=== PATIENT | female | born 1985 | race African-American/Black ===

== ENCOUNTER 2018-11-29 11:04 | Emergency (ER) | payer OTHER, MEDICAID, SELFPAY ==
[2018-11-29 11:05] VITALS: BP 111/71; PULSE 82; RESP 18; TEMP 36.9; O2SAT 100
--- NOTE | 2018-11-29 11:10 | ED_ITS ---
HPI - Headache General Chief Complaint: Dizziness Stated Complaint: headache dizzy spells vomiting Time Seen by Provider: 11/29/18 11:10 Source: patient Mode of arrival: Ambulatory Limitations: no limitations History of Present Illness HPI Narrative: Patient is a 33-year-old female who presents with vertigo and headache. She has had dizziness off and on for a number of will months comes and goes and seems to be coming more frequently. It can wake her from her sleep. It is definitely worse when she turns her head or sits up. She feels nauseous she has had vomiting she gets headaches with these. She was seen evaluated at [facility] they gave her nausea medication and dizzy medication she is not sure what they were. She sometimes has weakness in her legs. She denies any heart palpitations or chest pain. She overall does not feel well today. MD Complaint: headache Related Data Previous Rx's Medication Instructions Recorded diazepam [Valium] 2 mg PO Q12HR PRN #10 tab 11/29/18 ondansetron 4 mg PO Q8H PRN #10 tab 11/29/18 Allergies Allergy/AdvReac Type Severity Reaction Status Date / Time morphine [MORPHINE] Allergy Unknown HIVES Verified 11/29/18 14:43 prochlorperazine AdvReac Severe Hallucinati Verified 11/29/18 14:43 ng Review of Systems Review of Systems ROS Unobtainable: All systems reviewed & are unremarkable except as noted in HPI and below Constitutional Constitutional: Denies chills, Denies fever(s), Denies lethargy and Denies weakness Eyes Eyes: Denies blurry vision, Denies change in vision, Denies diplopia, Denies eye discharge, Denies irritation and Denies loss of vision ENT Ears, Nose, Mouth, and Throat: Denies change in voice, Denies neck pain and Denies sore throat Cardiovascular Cardiovascular: Denies chest pain, Denies irregular heart rhythm, Reports lightheadedness, Denies palpitations, Denies dyspnea, Denies dyspnea on exertion and Denies orthopnea Respiratory Respiratory: Denies cough, Denies dyspnea, Denies dyspnea on exertion and Denies wheezing Gastrointestinal Gastrointestinal: Reports nausea and Reports vomiting Genitourinary Genitourinary: Denies hematuria, Denies flank pain, Denies urinary incontinence and Denies urinary urgency Musculoskeletal Musculoskeletal: Denies neck pain Integumentary/Breasts Skin/Breast: Denies pruritus, Denies erythema, Denies rash and Denies wounds Neurologic Neurologic: Denies loss of vision and Denies weakness Endocrine Endocrine: Denies palpitations Allergic/Immunologic Allergic/Immunologic: Denies wheezing FORMERLY [facility], 1928–1983 Medical History History of hysterectomy (Acute) Social History (Updated 11/29/18 @ 11:40 by Nathaly Ivy DO) marital status: household members: spouse Social History marital status: household members: spouse Smoking Status: Never smoker Exam Initial Vital Signs Initial Vital Signs: Vital Signs Temperature 98.5 F 11/29/18 11:05 Pulse Rate 82 11/29/18 11:05 Respiratory Rate 18 11/29/18 11:05 Blood Pressure 111/71 11/29/18 11:05 Pulse Oximetry 100 11/29/18 11:05 GENERAL: Well-appearing, well-nourished and in no acute distress. HEENT: Head atraumatic,EOMI, pupils reactive, face symmetric, moist mucous membranes CARDIOVASCULAR: Regular rate and rhythm without murmurs, rubs or gallops. RESPIRATORY: Breath sounds equal bilaterally, no wheezes rales or rhonchi. ABDOMEN: Soft, nontender. Normoactive bowel sounds all 4 quadrants. No guarding or rebound. EXTREMITIES: Normal range of motion, no clubbing or edema. Neurovascularly intact NEUROLOGICAL: Alert and oriented x4.Normal gait and speech. Cranial nerves II through XII grossly intact. Good [id number]-[id number], good [id number]-mp-[id number], strength equal bilaterally, no dysarthria or aphasia, sensation in tact to soft touch bilaterally, no visual changes, no facial droop SKIN: Warm, dry, no laceration, no petechiae, no rashes or lesions. Scores NIH Stroke Scale Level of Conciousness: Alert, keenly responsive Ask month/age: Answers both questions correctly. Open/close eyes, close hand: Performs both tasks correctly Best gaze horizontal: Normal Visual mccurdy: No visual loss Facial palsy: Normal symetrical movement Left arm drift: No drift for full 10 sec Right arm drift: No drift for full 10 sec Left leg drift: No drift for full 10 sec Right leg drift: No drift for full 10 sec Limb ataxia: Absent Sensory on face/arms/legs: Normal, no sensory loss Best language: No aphasia, normal Dysarthria: Normal Extinction or inattention: No abnormality Total NIH Stroke scale score: 0 Course Orders Ordered: ED Orders 11/29/18 11:30 Basic Metabolic Panel Stat Complete Blood Count AUTO DIFF Stat 11/29/18 11:42 CT head/brain wo con Stat 11/29/18 12:30 EKG-12 Lead Stat Discontinued Medications Diphenhydramine HCl (Benadryl) 25 mg IV NOW ONE Stop: 11/29/18 11:22 Last Admin: 11/29/18 11:56 Dose: 25 mg Documented by: BTONER Sodium Chloride (Normal Saline 0.9%) 1,000 mls @ 1,000 mls/hr IV CONT TERRY Last Infusion: 11/29/18 13:50 Dose: 0 mls/hr Documented by: Admin: 11/29/18 11:55 Dose: 1,000 mls/hr Documented by: BTONER Ketorolac Tromethamine (Toradol) 30 mg IV NOW ONE Stop: 11/29/18 11:22 Last Admin: 11/29/18 11:56 Dose: 30 mg Documented by: BTONER Lorazepam (Ativan) 1 mg IV NOW ONE Stop: 11/29/18 12:21 Last Admin: 11/29/18 12:24 Dose: 1 mg Documented by: BTONER Prochlorperazine (Compazine) 5 mg IV NOW ONE Stop: 11/29/18 11:22 Last Admin: 11/29/18 11:55 Dose: 5 mg Documented by: BTONER Vital Signs Vital signs: Vital Signs - 8 hr 11/29/18 11:05 11/29/18 11:30 11/29/18 11:55 Temperature 98.5 F Pulse Rate 82 79 74 Respiratory Rate 18 14 Blood Pressure 111/71 111/71 Blood Pressure [Right Arm] 111/71 Pulse Oximetry 100 99 11/29/18 12:30 11/29/18 13:00 11/29/18 14:37 Temperature Pulse Rate 76 75 78 Respiratory Rate 17 16 17 Blood Pressure Blood Pressure [Right Arm] 113/71 117/70 104/69 Pulse Oximetry 100 100 100 MDM - Headache Lab Data Attestation: I reviewed the patient's lab results. Result diagrams: 11/29/18 11:30 11/29/18 11:30 Labs: Lab Results 11/29/18 11/29/18 Range/Units 11:30 11:30 WBC 4.1 L (4.5-11.0) X10^3/uL RBC 4.96 (4.0-5.2) X10^6/uL Hgb 13.7 (12.0-16.0) g/dL Hct 41.2 (36-46) % MCV 83.0 (80-100) fL MCH 27.6 (26-34) PG MCHC 33.2 (30-36) % RDW 13.5 (11.6-14.8) % Plt Count 195 (150-400) X10^3/uL Neut % (Auto) 45.9 L (50-75) % Lymph % (Auto) 45.5 H (25-40) % [place] % (Auto) 6.9 (3-14) % Eos % (Auto) 1.1 L (2-4) % Baso % (Auto) 0.6 (0-2) % Neut # (Auto) 1900 (1661-2060) /uL Lymph # (Auto) 1900 (8714-5661) /uL [place] # (Auto) 300 (0-900) /uL Eos # (Auto) 0 (0-450) /uL Baso # (Auto) 0 (0-100) /uL Sodium 140 (137-145) mmol/L Potassium 4.1 (3.4-5.1) mmol/L Chloride 105 (98-107) mmol/L Carbon Dioxide 22 (22-32) mmol/L BUN 11 (7-17) mg/dL Creatinine 0.60 (0.52-1.04) mg/dL Estimated GFR > 60.0 (>60) mL/min BUN/Creatinine Ratio 18.3 (6-22) Glucose 86 (70-100) mg/dL Calcium 9.5 (8.4-10.2) mg/dL Imaging Data CT scan - head: Radiologist's impression: PROCEDURE: CT HEAD/BRAIN WO CON INDICATIONS: recurrent dizzy spells TECHNIQUE: Noncontrast 4.5 mm thick angled axial sections acquired from the foramen magnum to the vertex, with coronal and sagittal reformats. For radiation dose reduction, the following was used: automated exposure control, adjustment of mA and/or kV according to patient size. COMPARISON: None. FINDINGS: Image quality: Excellent. CSF spaces: Basal cisterns are patent. No extra-axial fluid collections. Ventricles are normal in size and shape. Brain: No midline shift. No intracranial masses or hemorrhage. Medrano-white matter interface is normal. Skull and face: Calvarium and visualized facial bones are intact, without suspicious lesions. Sinuses: Visualized sinuses and mastoids are clear. IMPRESSION: Normal CT evaluation of the head without acute intracranial abnormalities. No evidence for mass or mass effect. Dictated by: Harjit Crouch M.D. on 11/29/2018 at 11:56 Approved by: Harjit Crouch M.D. on 11/29/2018 at 11:57 ECG Data Attestation: I personally reviewed and interpreted this ECG as follows: Prior ECG tracings: not available for review Interpretation: Normal sinus rhythm rate 69 p.r. interval [address] elevations or depressions no priors to compare. MDM Narrative Medical decision making narrative: Patient had reaction to Compazine she was given Ativan. She slept for some time. She overall is feeling much better. I recommend that she see ENT for ongoing vertigo symptoms. She was previously given the I am assuming meclizine. I will try her on some Valium the Ativan see med to help. Discharge Plan Departure Patient Disposition: Home Clinical Impression: Vertigo Discharge Date/Time: 11/29/18 14:39 Instructions: DI for Vertigo Activity Restrictions/Additional Instructions: *You have been diagnosed with vertigo *What to do: Rest. It you need and ENT referral. *Continue to take medications as directed Zofran 4 mg every 8 hours if needed for nausea or vomiting Valium 2.5 mg every 12 hours if needed for dizziness this can cause drowsiness and sleepiness do not drive or operate heavy machinery *Follow up with your primary care provider in 2-3 days *Return to ER if you should have worsening dizziness persistent vomiting weakness numbness tingling or any new, worsening or concerning symptoms Prescriptions: New diazepam [Valium] 2 mg tablet 2 mg PO Q12HR PRN (Reason: dizziness or vertigo) Qty: 10 RF: 0 ondansetron 4 mg tablet,disintegrating 4 mg PO Q8H PRN (Reason: nausea and vomiting) Qty: 10 RF: 0 Referrals: Gerry Perez MD [Physician] -
[2018-11-29 11:30] VITALS: BP 111/71; PULSE 79; RESP 14; O2SAT 99
--- NOTE | 2018-11-29 11:42 | DI.CT.S_ITS ---
PROCEDURE: CT HEAD/BRAIN WO CON INDICATIONS: recurrent dizzy spells TECHNIQUE: Noncontrast 4.5 mm thick angled axial sections acquired from the foramen magnum to the vertex, with coronal and sagittal reformats. For radiation dose reduction, the following was used: automated exposure control, adjustment of mA and/or kV according to patient size. COMPARISON: None. FINDINGS: Image quality: Excellent. CSF spaces: Basal cisterns are patent. No extra-axial fluid collections. Ventricles are normal in size and shape. Brain: No midline shift. No intracranial masses or hemorrhage. Medrano-white matter interface is normal. Skull and face: Calvarium and visualized facial bones are intact, without suspicious lesions. Sinuses: Visualized sinuses and mastoids are clear. IMPRESSION: Normal CT evaluation of the head without acute intracranial abnormalities. No evidence for mass or mass effect. Dictated by: Harjit Crouch M.D. on 11/29/2018 at 11:56 Approved by: Harjit Crouch M.D. on 11/29/2018 at 11:57
[2018-11-29 11:51] LABS: Add Manual Diff / Slide Review NO; Basophils Absolute Auto 0 /uL (0-100); Basophils Percent Auto 0.6 % (0-2); Eosinophils Absolute Auto 0 /uL (0-450); Eosinophils Percent Auto 1.1 % (2-4); Hematocrit 41.2 % (36-46); Hemoglobin 13.7 g/dL (12.0-16.0); Lymphocytes Absolute Auto 1900 /uL (1100-4500); Lymphocytes Percent Auto 45.5 % (25-40); Mean Corpuscular HGB Conc 33.2 % (30-36); Mean Corpuscular Hemoglobin 27.6 PG (26-34); Monocytes Absolute Auto 300 /uL (0-900); Monocytes Percent Auto 6.9 % (3-14); Neutrophils Absolute Auto 1900 /uL (1500-7000); Neutrophils Percent Auto 45.9 % (50-75); Platelet Count 195 X10^3/uL (150-400); Red Blood Cell Count 4.96 X10^6/uL (4.0-5.2); Red Cell Distribution Width 13.5 % (11.6-14.8); White Blood Cell Count 4.1 X10^3/uL (4.5-11.0)
[2018-11-29 11:55] VITALS: BP 111/71; PULSE 74
[2018-11-29] MEDS: PROCHLORPERAZINE 10 MG/2 ML VIAL 5 MG IV (11:55)
[2018-11-29] MEDS: SODIUM CHLORIDE 0.9% 1,000 ML 1000 ML IV (11:55)
[2018-11-29] MEDS: KETOROLAC 60 MG/2 ML VIAL 30 MG IV (11:56)
[2018-11-29] MEDS: diphenhydrAMINE 50 MG/ML VIAL 25 MG IV (11:56)
[2018-11-29 12:02] LABS: BUN Creatinine Ratio 18.3 (6-22); Blood Urea Nitrogen 11 mg/dL (7-17); Calcium 9.5 mg/dL (8.4-10.2); Carbon Dioxide 22 mmol/L (22-32); Chloride 105 mmol/L (98-107); Estimated Glomerular Filt Rate > 60.0 mL/min (>60); Glucose 86 mg/dL (70-100); Potassium 4.1 mmol/L (3.4-5.1); Sodium 140 mmol/L (137-145)
[2018-11-29 12:06] LABS: HEMOLYSIS 65 (0-50)
[2018-11-29] MEDS: LORazepam 2 MG/ML INJ 1 MG IV (12:24)
[2018-11-29 12:30] VITALS: BP 113/71; PULSE 76; RESP 17; O2SAT 100
[2018-11-29 13:00] VITALS: BP 117/70; PULSE 75; RESP 16; O2SAT 100
[2018-11-29 14:37] VITALS: BP 104/69; PULSE 78; RESP 17; O2SAT 100
== END 2018-11-29 14:39 | disposition home or self-care (01) ==
PROVIDERS: Emergency Provider Emergency Medicine
DX: R42 Dizziness and giddiness (principal)
CPT/HCPCS: 36415; 70450; 80048; 85025; 93005; 93010; 96361; 96374; 96375; 99283; 99285; J0780; J1200; J1885; J2060

== ENCOUNTER 2019-02-14 11:47 | Outpatient (RCR) | payer OTHER, MEDICAID, SELFPAY ==
--- NOTE | 2019-02-14 16:43 | PT.OIE ---
Current Diagnoses Benign paroxysmal vertigo, unspecified ear (02/14/19) Other peripheral vertigo, unspecified ear (02/14/19) Dizziness and giddiness (02/14/19) Past Surgical History (Last Reviewed 11/29/18 @ 11:40 by Nathaly Ivy DO) History of hysterectomy (Acute) Visit Care Team Role Provider Type Gerry Perez MD Attending Provider Physician Specialty: Ear, Nose, Throat Address: [address] [place] [address], [id number] Email: [email or web address] Initial Evaluation PT-OP-A Visit Information Start: 02/14/19 15:52 Freq: Status: Active Protocol: Document 02/14/19 12:00 DCW (Rec: 02/14/19 16:43 DCW [id number]) Out-Patient Physical Therapy Visit Information Visit Information Visit Type Initial Evaluation Visit Start Time 12:00 Visit Stop Time 12:45 Total Visit Minutes 45 Visit Number 1 Number of ATTENDING RADIOLOGIST Visits 0 Evaluation Information Evaluation Date 02/14/19 PT-OP-B Current Condition Start: 02/14/19 15:52 Freq: Status: Active Protocol: Document 02/14/19 12:00 DCW (Rec: 02/14/19 16:43 DCW [id number]) Current Condition History of Current Condition Current Complaints Vertiginous migraine History of Current Condition Pt is a 33 year old female with a life-long history of migraine. Pt reports as a child, she would frequently pass out due to the pain. It has come and gone over the course of her life, resulting in occasional fainting spells and facial numbness. Pt feels like it has been getting worse recently. When it begins with head pounding, she can't move, the room is spinning, and eventually I'll start vomiting. After that, even though I'm still dizzy, I normally fall asleep, just because I'm so tired. It normally lasts about 24 hours. She has seen her PCP, who referred her to a neurologist, as well as an ENT, all confirming diagnosis of vestibular migraine. Initially, pt reported that when she was not experiencing an active migraine, she didn't have any remaining symptoms, however after a discussion, pt noted that she was unable to tolerate any fast turns or increased visual movement. Pt reports that when she lies back when attempting an Kristofer maneuver, he sees horizontal eye movement, however this results in syncope. Prior Treatments and Tests Appointments with neurologist, ENT, behavioral medical director Future Testing and Treatments Planned Upcoming [facility]NG at [facility] Treatment Goals Patient/Caregiver Goals Minimize dizziness and migraine PT-OP-C Subjective Start: 02/14/19 15:52 Freq: Status: Active Protocol: Document 02/14/19 12:00 DCW (Rec: 02/14/19 16:43 DCW [id number]) OP-PT Subjective Patient Comments Patient Comments I have migraines on a daily basis, but they don't always make me dizzy. I only typically get dizzy about once a week. Patient Questionnaires ABC- Activity Specific Balance Confidence Scale ABC Score 51.25% ABC Functional Impairment 40 to <60% Impaired (Score 41- 60) Dizziness Handicap Inventory DHI Score 46% DHI Functional Impairment 40 to 59% Impaired (Score 40- 59) PT-OP-D Balance Start: 02/14/19 15:52 Freq: Status: Active Protocol: Document 02/14/19 12:00 DCW (Rec: 02/14/19 16:43 DCW [id number]) Balance Tests CTSIB CTSIB Position 1 Slight Sway CTSIB Position 2 Slight Sway CTSIB Position 3 Moderate Sway CTSIB Position 4 Mild Sway CTSIB Position 5 Mild Sway CTSIB Position 6 Moderate Sway PT-OP-O Vestibular Start: 02/14/19 15:52 Freq: Status: Active Protocol: Document 02/14/19 12:00 DCW (Rec: 02/14/19 16:43 DCW [id number]) Vestibular Assessment Visual Testing DVA (Line Degradation) 3 Vestibulo-Ocular Reflex (VOR1) Positive Vestibulo-Ocular Reflex (VOR2) Positive Comments Vestibular Comments DVA resulted in complaints of dizziness and seeing spots. PT-OP-Q Treatments Start: 02/14/19 15:52 Freq: Status: Active Protocol: Document 02/14/19 12:00 DCW (Rec: 02/14/19 16:43 DCW [id number]) Neuro Re-Education Treatment Vestibular Rehabilitation X1 Viewing Details Target still, head moving Distance From Target Arm length Speed as tolerated Position seated VOR Retraining Details Head, eyes, and target moving together Distance From Target Arm length Speed as tolerated Position seated PT-OP-T Assessment and Plan Start: 02/14/19 15:52 Freq: Status: Active Protocol: Document 02/14/19 12:00 DCW (Rec: 02/14/19 16:43 DCW [id number]) Physical Therapy Assessment Rehab Potential Rehabilitation Potential Fair Evaluation Complexity Number of Personal Factors/Comorbidities 3 or More Number of Body Systems Impaired 4 or More Clinical Presentation at Evaluation Unstable Impairments Impairments Balance,Pain,Vestibular,Visual Motor Goals Two Impairment Pt unable to tolerate fast turns when looking at traffic in the car Senior Living Goal (LTG) Pt to tolerate turning her head left<->right in a 45? arc of motion at a speed of 1 Hz without increased dizziness LTG Duration 04/17/19 One Impairment Pt does not have an appropriate home exercise program Short Term Goal (STG) Pt to be independent and compliant with an appropriate HEP STG Duration 03/17/19 Assessment Summary Assessment Pt presents with signs and symptoms consistent with vertiginous migraine. Even when not experiencing an active migraine with vertiginous symptoms, pt still has very severe visual motion sensitivity, with a trial of X1 viewing at a slow speed resulting in a large increase in complaints of dizziness and head pain. Pt would likely benefit from a referral to a neurologist whom specializes in migraine, however may benefit from skilled vestibular therapy in order to reduce her visual motion sensitivity and limit effects of triggering motions. Physical Therapy Plan Frequency and Duration Frequency of Treatment 1x/Week Duration of Treatment 10 weeks Plan of Care Start Date 02/14/19 Plan of Care End Date 04/25/19 Therapeutic Interventions Therapeutic Interventions Balance Training,Neuromuscular Re-education,Patient/ Caregiver Education,Self-Care/ Home Management,Therapeutic Activities,Therapeutic Exercises,Vestibular Rehabilitation Next Visit Focus/Plan Next Note Type Treatment Note Next Visit Plan Vestibular rehabilitation, Habituation/Adaptation
== END 2019-08-15 13:16 ==
LOC: PHYS 11:47
PROVIDERS: Visit Provider Otolaryngology
DX: H81.10 Benign paroxysmal vertigo, unspecified ear (principal); H81.399 Other peripheral vertigo, unspecified ear
CPT/HCPCS: 97112; 97163

== ENCOUNTER 2019-08-30 15:15 | Outpatient (RCR) | payer OTHER, MEDICAID, SELFPAY ==
--- NOTE | 2019-07-25 12:00 | PT.OPPOC ---
Physical, Occupational & Speech Therapy At [facility] Current Diagnoses Other peripheral vertigo, unspecified ear (07/25/19) Dizziness and giddiness (07/25/19) Visit Care Team Role Provider Type Gerry Perez MD Attending Provider Physician Referring Provider Specialty: Ear, Nose, Throat Address: [address] [place] [address], [facility] Email: [email or web address] Plan Of Care PT-OP-T Assessment and Plan Start: 07/27/19 10:49 Freq: Status: Active Protocol: Document 07/25/19 11:15 DCW (Rec: 07/27/19 11:16 DCW [id number]) Physical Therapy Assessment Rehab Potential Rehabilitation Potential Fair Evaluation Complexity Number of Personal Factors/Comorbidities 3 or More Number of Body Systems Impaired 4 or More Clinical Presentation at Evaluation Unstable Impairments Impairments Balance,Coordination, Vestibular,Visual Motor Goals Three Impairment Pt completed BOTELLO chart in 1: 39.91 with two errors Alf Goal (LTG) Pt to complete full BOTELLO chart saccadic reading <1:25 with 100% accuracy LTG Duration 09/24/19 Two Impairment Pt unable to tolerate fast turns when looking at traffic in the car Material Specialist Goal (LTG) Pt to tolerate turning her head left<->right in a 45? arc of motion at a speed of 1 Hz without increased dizziness LTG Duration 09/24/19 One Impairment Pt does not have an appropriate home exercise program Short Term Goal (STG) Pt to be independent and compliant with an appropriate HEP STG Duration 08/25/19 Assessment Summary Assessment Pt presents with a multitude of generally subjective complaints, no noteable nystagmus or testable balance deficits, however has received a VNG, which showed a 57% right vestibular loss. Pt has substantial subjective complaints with visual motion, and describes difficulty with activities like scanning store shelves, riding in a car , scanning visually while driving, and fast position changes. With pt's history of mirgaines, pt's complaints could potentially be associated with vestibular migraine, however this is unlikely to explain her right unilateral weakness. Skilled vestibular rehabilitation should be beneficial in decreasing pt's visual motion sensitivity/Optokinetic Nystagmus, and an extensive HEP should be provided in order to help with vestibular habituation. Physical Therapy Plan Frequency and Duration Frequency of Treatment 1x/Week Duration of Treatment 10 weeks Plan of Care Start Date 07/25/19 Plan of Care End Date 10/03/19 Therapeutic Interventions Therapeutic Interventions Balance Training,Coordination Training,Home Exercise Program ,Manual Therapy,Neuromuscular Re-education,Sensory Integration,Therapeutic Exercises,Vestibular Rehabilitation Next Visit Focus/Plan Next Note Type Treatment Note Next Visit Plan Vestibular rehabilitation, habituation and adaptation exercises Plan of Care Dates Plan of Care Start Date 07/25/19 Plan of Care End Date 10/03/19 Electronically Signed by: Yuri Vargas, PT 07/27/19 [id number] Please Sign and Return: I have reviewed this Plan of Care and certify that the skilled therapy services above are required to meet the patient?s needs. Physician Signature Date Printed Name and Credentials Clinical Instructor Signature Printed Name and Credentials
--- NOTE | 2019-07-25 12:00 | PT.OIE ---
Current Diagnoses Other peripheral vertigo, unspecified ear (07/25/19) Dizziness and giddiness (07/25/19) Past Surgical History (Last Reviewed 11/29/18 @ 11:40 by Nathaly Ivy DO) History of hysterectomy (Acute) Visit Care Team Role Provider Type Gerry Perez MD Attending Provider Physician Referring Provider Specialty: Ear, Nose, Throat Address: [address] [place] [address], [facility] Email: [email or web address] Physical Therapy Initial Evaluation PT-OP-A Visit Information Start: 07/27/19 10:49 Freq: Status: Active Protocol: Document 07/25/19 11:15 DCW (Rec: 07/27/19 11:16 DCW [id number]) Out-Patient Physical Therapy Visit Information Visit Information Visit Type Initial Evaluation Visit Start Time 11:15 Visit Stop Time 12:00 Total Visit Minutes 45 Visit Number 1 Number of CHIEF I DISPATCHER Visits 0 Evaluation Information Evaluation Date 07/25/19 PT-OP-B Current Condition Start: 07/27/19 10:49 Freq: Status: Active Protocol: Document 07/25/19 11:15 DCW (Rec: 07/27/19 11:16 DCW [id number]) Current Condition History of Current Condition Onset Date Multi-year history Current Complaints Vertiginous migraine, visual motion sensitivity History of Current Condition Pt is a 33 year old female presenting with a long- standing history of migraine, dizziness, and visual motion sensitivity. Pt had previously undergone a vestibular evaluation at this clinic five months ago, but was then scheduled for a VNG and decided to wait on the results prior to returning to therapy . VNG results show a 57% right unilateral weakness, however the left ear did not have caloric testing performed due to pt's severe nausea with the right testing. Pt's symptoms last hours to days, and are worsened by increased visual motion, certain smells, or bending over. Treatment Goals Patient/Caregiver Goals Control/reduce dizzy spells. PT-OP-C Subjective Start: 07/27/19 10:49 Freq: Status: Active Protocol: Document 07/25/19 11:15 DCW (Rec: 07/27/19 11:16 DCW [id number]) OP-PT Subjective Patient Comments Patient Comments I was sick for five days after having that testing done . Patient Reported Progress Worse Patient Questionnaires Dizziness Handicap Inventory DHI Score 50% DHI Functional Impairment 40 to 59% Impaired (Score 40- 59) PT-OP-D Balance Start: 07/27/19 10:49 Freq: Status: Active Protocol: Document 07/25/19 11:15 DCW (Rec: 07/27/19 11:16 DCW [id number]) OP-PT Balance Assessment Standing Balance Static Standing Balance Ability Normal Dynamic Standing Balance Ability Good Balance Tests CTSIB CTSIB Position 1 30 seconds CTSIB Position 2 30 seconds CTSIB Position 3 30 seconds CTSIB Position 4 30 seconds CTSIB Position 5 30 seconds CTSIB Position 6 30 seconds Lyon Fall Scale Copyright Permission PT-OP-O Vestibular Start: 07/27/19 10:49 Freq: Status: Active Protocol: Document 07/25/19 11:15 DCW (Rec: 07/27/19 11:16 DCW [id number]) Vestibular Assessment Auditory Tests Desai Test Negative Rinne Test Negative Air Conduction Results Equal Visual Testing Smooth Pursuits Horizontal WNL Smooth Pursuits Vertical WNL Saccades Horizontal WNL Ronnie String Test WNL DVA (Line Degradation) 3 Vestibulo-Ocular Reflex (VOR1) Positive Vestibulo-Ocular Reflex (VOR2) Positive Vestibular Function Tests Fukuda Test WNL Comments Vestibular Comments Sewell Chart: Saccadic reading of columns 1 and 10: 14.64 no errors Saccadic reading of full chart : 1'39.91 2 errors PT-OP-T Assessment and Plan Start: 07/27/19 10:49 Freq: Status: Active Protocol: Document 07/25/19 11:15 DCW (Rec: 07/27/19 11:16 DCW [id number]) Physical Therapy Assessment Rehab Potential Rehabilitation Potential Fair Evaluation Complexity Number of Personal Factors/Comorbidities 3 or More Number of Body Systems Impaired 4 or More Clinical Presentation at Evaluation Unstable Impairments Impairments Balance,Coordination, Vestibular,Visual Motor Goals Three Impairment Pt completed SEWELL chart in 1: 39.91 with two errors Prison Goal (LTG) Pt to complete full SEWELL chart saccadic reading <1:25 with 100% accuracy LTG Duration 09/24/19 Two Impairment Pt unable to tolerate fast turns when looking at traffic in the car Prison Goal (LTG) Pt to tolerate turning her head left<->right in a 45? arc of motion at a speed of 1 Hz without increased dizziness LTG Duration 09/24/19 One Impairment Pt does not have an appropriate home exercise program Short Term Goal (STG) Pt to be independent and compliant with an appropriate HEP STG Duration 08/25/19 Assessment Summary Assessment Pt presents with a multitude of generally subjective complaints, no notable nystagmus or testable balance deficits, however has received a VNG, which showed a 57% right vestibular loss. Pt has substantial subjective complaints with visual motion, and describes difficulty with activities like scanning store shelves, riding in a car , scanning visually while driving, and fast position changes. With pt's history of mirgaines, pt's complaints could potentially be associated with vestibular migraine, however this is unlikely to explain her right unilateral weakness. Skilled vestibular rehabilitation should be beneficial in decreasing pt's visual motion sensitivity/Optokinetic Nystagmus, and an extensive HEP should be provided in order to help with vestibular habituation. Physical Therapy Plan Frequency and Duration Frequency of Treatment 1x/Week Duration of Treatment 10 weeks Plan of Care Start Date 07/25/19 Plan of Care End Date 10/03/19 Therapeutic Interventions Therapeutic Interventions Balance Training,Coordination Training,Home Exercise Program ,Manual Therapy,Neuromuscular Re-education,Sensory Integration,Therapeutic Exercises,Vestibular Rehabilitation Next Visit Focus/Plan Next Note Type Treatment Note Next Visit Plan Vestibular rehabilitation, habituation and adaptation exercises
--- NOTE | 2019-08-01 11:48 | PT.OTN ---
Current Diagnoses Other peripheral vertigo, unspecified ear (08/01/19) Dizziness and giddiness (08/01/19) Physical Therapy Treatment Note PT-OP-A Visit Information Start: 07/27/19 10:49 Freq: Status: Active Protocol: Document 08/01/19 11:05 DCW (Rec: 08/01/19 11:48 DCW [id number]) Out-Patient Physical Therapy Visit Information Visit Information Visit Type Treatment Note Visit Start Time 11:05 Visit Stop Time 11:50 Total Visit Minutes 45 Visit Number 2 Number of BAFFLE MOUNTER Visits 0 Evaluation Information Evaluation Date 07/25/19 PT-OP-B Current Condition Start: 07/27/19 10:49 Freq: Status: Active Protocol: Document 07/25/19 11:15 DCW (Rec: 07/27/19 11:16 DCW [id number]) Current Condition History of Current Condition Onset Date Multi-year history Current Complaints Vertiginous migraine, visual motion sensitivity History of Current Condition Pt is a 33 year old female presenting with a long- standing history of migraine, dizziness, and visual motion sensitivity. Pt had previously undergone a vestibular evaluation at this clinic five months ago, but was then scheduled for a VNG and decided to wait on the results prior to returning to therapy . VNG results show a 57% right unilateral weakness, however the left ear did not have caloric testing performed due to pt's severe nausea with the right testing. Pt's symptoms last hours to days, and are worsened by increased visual motion, certain smells, or bending over. Treatment Goals Patient/Caregiver Goals Control/reduce dizzy spells. PT-OP-C Subjective Start: 07/27/19 10:49 Freq: Status: Active Protocol: Document 08/01/19 11:05 DCW (Rec: 08/01/19 11:48 DCW [id number]) OP-PT Subjective Patient Comments Patient Comments Yesterday was bad, I was bed- ridden all day, but today is better. PT-OP-D Balance Start: 07/27/19 10:49 Freq: Status: Active Protocol: Document 07/25/19 11:15 DCW (Rec: 07/27/19 11:16 DCW [id number]) OP-PT Balance Assessment Standing Balance Static Standing Balance Ability Normal Dynamic Standing Balance Ability Good Balance Tests CTSIB CTSIB Position 1 30 seconds CTSIB Position 2 30 seconds CTSIB Position 3 30 seconds CTSIB Position 4 30 seconds CTSIB Position 5 30 seconds CTSIB Position 6 30 seconds Lyon Fall Scale Copyright Permission PT-OP-O Vestibular Start: 07/27/19 10:49 Freq: Status: Active Protocol: Document 07/25/19 11:15 DCW (Rec: 07/27/19 11:16 DCW [id number]) Vestibular Assessment Auditory Tests Desai Test Negative Rinne Test Negative Air Conduction Results Equal Visual Testing Smooth Pursuits Horizontal WNL Smooth Pursuits Vertical WNL Saccades Horizontal WNL Ronnie String Test WNL DVA (Line Degradation) 3 Vestibulo-Ocular Reflex (VOR1) Positive Vestibulo-Ocular Reflex (VOR2) Positive Vestibular Function Tests Fukuda Test WNL Comments Vestibular Comments Sewell Chart: Saccadic reading of columns 1 and 10: 14.64 no errors Saccadic reading of full chart : 1'39.91 2 errors PT-OP-Q Treatments Start: 07/27/19 10:49 Freq: Status: Active Protocol: Document 08/01/19 11:05 DCW (Rec: 08/01/19 11:48 DCW [id number]) Gym Equipment Shuttle Balance Red Details Wide ADELA (EO, EC, X1, VOR Neuro Re-Education Treatment Balance Activities 4 Details Disco Ball Surface Mayer foam 3 Details Ball/cone transfer in tandem stance 2 Details SLS /c digonal head turns Surface firm 1 Details [place] with head-turns tandem gait Vestibular Rehabilitation VOR Retraining Details Laser patters/maze Background [place] board Distance From Target 8 feet Comments Blue foam staggered stance PT-OP-T Assessment and Plan Start: 07/27/19 10:49 Freq: Status: Active Protocol: Document 08/01/19 11:05 DCW (Rec: 08/01/19 11:48 DCW [id number]) Physical Therapy Assessment Impairments Impairments Balance,Coordination, Vestibular,Visual Motor Goals Three Impairment Pt completed SEWELL chart in 1: 39.91 with two errors Distance Education Teacher Goal (LTG) Pt to complete full SEWELL chart saccadic reading <1:25 with 100% accuracy LTG Duration 09/24/19 Two Impairment Pt unable to tolerate fast turns when looking at traffic in the car Distance Education Teacher Goal (LTG) Pt to tolerate turning her head left<->right in a 45? arc of motion at a speed of 1 Hz without increased dizziness LTG Duration 09/24/19 One Impairment Pt does not have an appropriate home exercise program Short Term Goal (STG) Pt to be independent and compliant with an appropriate HEP STG Duration 08/25/19 Assessment Summary Assessment Pt did well overall, but required rest breaks after nearly every activity to prevent dizziness and headache for worsening. Physical Therapy Plan Frequency and Duration Frequency of Treatment 1x/Week Duration of Treatment 10 weeks Plan of Care Start Date 07/25/19 Plan of Care End Date 10/03/19 Therapeutic Interventions Therapeutic Interventions Balance Training,Coordination Training,Home Exercise Program ,Manual Therapy,Neuromuscular Re-education,Sensory Integration,Therapeutic Exercises,Vestibular Rehabilitation Next Visit Focus/Plan Next Note Type Treatment Note Next Visit Plan Vestibular rehabilitation, habituation and adaptation exercises
--- NOTE | 2019-08-06 10:24 | PT.OTN ---
Current Diagnoses Other peripheral vertigo, unspecified ear (08/06/19) Dizziness and giddiness (08/06/19) Physical Therapy Treatment Note PT-OP-A Visit Information Start: 07/27/19 10:49 Freq: Status: Active Protocol: Document 08/06/19 09:45 DCW (Rec: 08/06/19 10:24 DCW [id number]) Out-Patient Physical Therapy Visit Information Visit Information Visit Type Treatment Note Visit Start Time 09:45 Visit Stop Time 10:20 Total Visit Minutes 35 Visit Number 3 Number of STEEPING PRESS OPERATOR Visits 0 Evaluation Information Evaluation Date 07/25/19 PT-OP-B Current Condition Start: 07/27/19 10:49 Freq: Status: Active Protocol: Document 07/25/19 11:15 DCW (Rec: 07/27/19 11:16 DCW [id number]) Current Condition History of Current Condition Onset Date Multi-year history Current Complaints Vertiginous migraine, visual motion sensitivity History of Current Condition Pt is a 33 year old female presenting with a long- standing history of migraine, dizziness, and visual motion sensitivity. Pt had previously undergone a vestibular evaluation at this clinic five months ago, but was then scheduled for a VNG and decided to wait on the results prior to returning to therapy . VNG results show a 57% right unilateral weakness, however the left ear did not have caloric testing performed due to pt's severe nausea with the right testing. Pt's symptoms last hours to days, and are worsened by increased visual motion, certain smells, or bending over. Treatment Goals Patient/Caregiver Goals Control/reduce dizzy spells. PT-OP-C Subjective Start: 07/27/19 10:49 Freq: Status: Active Protocol: Document 08/06/19 09:45 DCW (Rec: 08/06/19 10:24 DCW [id number]) OP-PT Subjective Patient Comments Patient Comments Pt reports that she was not feeling well for 1.5 days following her last treatment session, and she had difficulty drving herself home . PT-OP-D Balance Start: 07/27/19 10:49 Freq: Status: Active Protocol: Document 07/25/19 11:15 DCW (Rec: 07/27/19 11:16 DCW [id number]) OP-PT Balance Assessment Standing Balance Static Standing Balance Ability Normal Dynamic Standing Balance Ability Good Balance Tests CTSIB CTSIB Position 1 30 seconds CTSIB Position 2 30 seconds CTSIB Position 3 30 seconds CTSIB Position 4 30 seconds CTSIB Position 5 30 seconds CTSIB Position 6 30 seconds Lyon Fall Scale Copyright Permission PT-OP-O Vestibular Start: 07/27/19 10:49 Freq: Status: Active Protocol: Document 07/25/19 11:15 DCW (Rec: 07/27/19 11:16 DCW [id number]) Vestibular Assessment Auditory Tests Desai Test Negative Rinne Test Negative Air Conduction Results Equal Visual Testing Smooth Pursuits Horizontal WNL Smooth Pursuits Vertical WNL Saccades Horizontal WNL Ronnie String Test WNL DVA (Line Degradation) 3 Vestibulo-Ocular Reflex (VOR1) Positive Vestibulo-Ocular Reflex (VOR2) Positive Vestibular Function Tests Fukuda Test WNL Comments Vestibular Comments Botello Chart: Saccadic reading of columns 1 and 10: 14.64 no errors Saccadic reading of full chart : 1'39.91 2 errors PT-OP-Q Treatments Start: 07/27/19 10:49 Freq: Status: Active Protocol: Document 08/06/19 09:45 DCW (Rec: 08/06/19 10:24 DCW [id number]) Gym Equipment Shuttle Balance Red Details Wide ADELA (EO, EC, X1, VOR) Manual Therapy Treatment Soft Tissue Mobilization 1 Body Location Suboccipitals Mobilization Type Sustained Pressure Intensity/Depth Superficial Comments Stopped due to worsening symptoms Neuro Re-Education Treatment Balance Activities 5 Details SLS Surface Blue foam rectangle Vestibular Rehabilitation String Reading Details Skipping double letters Distance From Target 5 ft BOTELLO Chart Details Diagonal Saccades Distance From Target 5 ft PT-OP-T Assessment and Plan Start: 07/27/19 10:49 Freq: Status: Active Protocol: Document 08/06/19 09:45 DCW (Rec: 08/06/19 10:24 DCW [id number]) Physical Therapy Assessment Impairments Impairments Balance,Coordination, Vestibular,Visual Motor Goals Three Impairment Pt completed BOTELLO chart in 1: 39.91 with two errors Residential Goal (LTG) Pt to complete full BOTELLO chart saccadic reading <1:25 with 100% accuracy LTG Duration 09/24/19 Two Impairment Pt unable to tolerate fast turns when looking at traffic in the car [employer] Miller Goal (LTG) Pt to tolerate turning her head left<->right in a 45? arc of motion at a speed of 1 Hz without increased dizziness LTG Duration 09/24/19 One Impairment Pt does not have an appropriate home exercise program Short Term Goal (STG) Pt to be independent and compliant with an appropriate HEP STG Duration 08/25/19 Assessment Summary Assessment Stopped treatment early due to increased symptoms to allow pt to recover. Pt did not tolerate STM to suboccipitals well, reported increased symptoms. Physical Therapy Plan Frequency and Duration Frequency of Treatment 1x/Week Duration of Treatment 10 weeks Plan of Care Start Date 07/25/19 Plan of Care End Date 10/03/19 Therapeutic Interventions Therapeutic Interventions Balance Training,Coordination Training,Home Exercise Program ,Manual Therapy,Neuromuscular Re-education,Sensory Integration,Therapeutic Exercises,Vestibular Rehabilitation Next Visit Focus/Plan Next Note Type Treatment Note Next Visit Plan Vestibular rehabilitation, habituation and adaptation exercises
--- NOTE | 2019-08-30 15:57 | PT.OTN ---
Current Diagnoses Other peripheral vertigo, unspecified ear (08/30/19) Dizziness and giddiness (08/30/19) Physical Therapy Treatment Note PT-OP-A Visit Information Start: 07/27/19 10:49 Freq: Status: Active Protocol: Document 08/30/19 15:15 DCW (Rec: 08/30/19 15:57 DCW [id number]) Out-Patient Physical Therapy Visit Information Visit Information Visit Type Treatment Note Visit Start Time 15:15 Visit Stop Time 16:00 Total Visit Minutes 45 Visit Number 4 Number of TRIPLE DRUM OPERATOR Visits 0 Evaluation Information Evaluation Date 07/25/19 PT-OP-B Current Condition Start: 07/27/19 10:49 Freq: Status: Active Protocol: Document 07/25/19 11:15 DCW (Rec: 07/27/19 11:16 DCW [id number]) Current Condition History of Current Condition Onset Date Multi-year history Current Complaints Vertiginous migraine, visual motion sensitivity History of Current Condition Pt is a 33 year old female presenting with a long- standing history of migraine, dizziness, and visual motion sensitivity. Pt had previously undergone a vestibular evaluation at this clinic five months ago, but was then scheduled for a VNG and decided to wait on the results prior to returning to therapy . VNG results show a 57% right unilateral weakness, however the left ear did not have caloric testing performed due to pt's severe nausea with the right testing. Pt's symptoms last hours to days, and are worsened by increased visual motion, certain smells, or bending over. Treatment Goals Patient/Caregiver Goals Control/reduce dizzy spells. PT-OP-C Subjective Start: 07/27/19 10:49 Freq: Status: Active Protocol: Document 08/30/19 15:15 DCW (Rec: 08/30/19 15:57 DCW [id number]) OP-PT Subjective Patient Comments Patient Comments Pt reports she has been really sick, multiple episodes of migraine and seeing spots, did have a fever at one point, the last really bad headache was this past tuesday, still not better, but not as bad. Pt did have a Zoom call with her neurologist, got a new perscription for medication, just started last night, not sure how it is working yet. PT-OP-D Balance Start: 07/27/19 10:49 Freq: Status: Active Protocol: Document 07/25/19 11:15 DCW (Rec: 07/27/19 11:16 DCW [id number]) OP-PT Balance Assessment Standing Balance Static Standing Balance Ability Normal Dynamic Standing Balance Ability Good Balance Tests CTSIB CTSIB Position 1 30 seconds CTSIB Position 2 30 seconds CTSIB Position 3 30 seconds CTSIB Position 4 30 seconds CTSIB Position 5 30 seconds CTSIB Position 6 30 seconds Lyon Fall Scale Copyright Permission PT-OP-O Vestibular Start: 07/27/19 10:49 Freq: Status: Active Protocol: Document 07/25/19 11:15 DCW (Rec: 07/27/19 11:16 DCW [id number]) Vestibular Assessment Auditory Tests Desai Test Negative Rinne Test Negative Air Conduction Results Equal Visual Testing Smooth Pursuits Horizontal WNL Smooth Pursuits Vertical WNL Saccades Horizontal WNL Ronnie String Test WNL DVA (Line Degradation) 3 Vestibulo-Ocular Reflex (VOR1) Positive Vestibulo-Ocular Reflex (VOR2) Positive Vestibular Function Tests Fukuda Test WNL Comments Vestibular Comments Botello Chart: Saccadic reading of columns 1 and 10: 14.64 no errors Saccadic reading of full chart : 1'39.91 2 errors PT-OP-Q Treatments Start: 07/27/19 10:49 Freq: Status: Active Protocol: Document 08/30/19 15:15 DCW (Rec: 08/30/19 15:57 DCW [id number]) Neuro Re-Education Treatment Vestibular Rehabilitation Eye push-ups Details Eye push-ups Comments Doubles at 36 cm Targets Details Following target - Smooth pursuit Comments Causes corrective saccades String Reading Details Skipping double letters Distance From Target 5 ft PT-OP-T Assessment and Plan Start: 07/27/19 10:49 Freq: Status: Active Protocol: Document 08/30/19 15:15 DCW (Rec: 08/30/19 15:57 DCW [id number]) Physical Therapy Assessment Impairments Impairments Balance,Coordination, Vestibular,Visual Motor Goals Three Impairment Pt completed BOTELLO chart in 1: 39.91 with two errors Sports Administrator Goal (LTG) Pt to complete full BOTELLO chart saccadic reading <1:25 with 100% accuracy LTG Duration 09/24/19 Two Impairment Pt unable to tolerate fast turns when looking at traffic in the car Sports Administrator Goal (LTG) Pt to tolerate turning her head left<->right in a 45? arc of motion at a speed of 1 Hz without increased dizziness LTG Duration 09/24/19 One Impairment Pt does not have an appropriate home exercise program Short Term Goal (STG) Pt to be independent and compliant with an appropriate HEP STG Duration 08/25/19 Assessment Summary Assessment Due to pt's severe symptoms recently, a gentle treatment was performed, and ended earlier than scheduled to ensure pt was not over stimulated. Pt displaying corrective saccades today during smooth pursuit, which is a new symptoms, and she also had significant difficulty with convergence, reporting diplopia when target was still 36 cm away from her nose. Physical Therapy Plan Frequency and Duration Frequency of Treatment 1x/Week Duration of Treatment 10 weeks Plan of Care Start Date 07/25/19 Plan of Care End Date 10/03/19 Therapeutic Interventions Therapeutic Interventions Balance Training,Coordination Training,Home Exercise Program ,Manual Therapy,Neuromuscular Re-education,Sensory Integration,Therapeutic Exercises,Vestibular Rehabilitation Next Visit Focus/Plan Next Note Type Treatment Note Next Visit Plan Vestibular rehabilitation, habituation and adaptation exercises
--- NOTE | 2019-12-07 09:32 | PT.OPDS ---
Current Diagnoses Other peripheral vertigo, unspecified ear (08/30/19) Dizziness and giddiness (08/30/19) Visit Care Team Role Provider Type Gerry Perez MD Attending Provider Physician Referring Provider Specialty: Ear, Nose, Throat Address: [address] [place] [address], [id number] Email: [email or web address] Visit Number Visit Number 4 Discharge Summary PT-OP-B Current Condition Start: 07/27/19 10:49 Freq: Status: Active Protocol: Document 07/25/19 11:15 DCW (Rec: 07/27/19 11:16 DCW [id number]) Current Condition History of Current Condition Onset Date Multi-year history Current Complaints Vertiginous migraine, visual motion sensitivity History of Current Condition Pt is a 33 year old female presenting with a long- standing history of migraine, dizziness, and visual motion sensitivity. Pt had previously undergone a vestibular evaluation at this clinic five months ago, but was then scheduled for a VNG and decided to wait on the results prior to returning to therapy . VNG results show a 57% right unilateral weakness, however the left ear did not have caloric testing performed due to pt's severe nausea with the right testing. Pt's symptoms last hours to days, and are worsened by increased visual motion, certain smells, or bending over. Treatment Goals Patient/Caregiver Goals Control/reduce dizzy spells. PT-OP-C Subjective Start: 07/27/19 10:49 Freq: Status: Active Protocol: Document 08/30/19 15:15 DCW (Rec: 08/30/19 15:57 DCW [id number]) OP-PT Subjective Patient Comments Patient Comments Pt reports she has been really sick, multiple episodes of migraine and seeing spots, did have a fever at one point, the last really bad headache was this past tuesday, still not better, but not as bad. Pt did have a Zoom call with her neurologist, got a new perscription for medication, just started last night, not sure how it is working yet. PT-OP-D Balance Start: 07/27/19 10:49 Freq: Status: Active Protocol: Document 07/25/19 11:15 DCW (Rec: 07/27/19 11:16 [facility] [id number]) OP-PT Balance Assessment Standing Balance Static Standing Balance Ability Normal Dynamic Standing Balance Ability Good Balance Tests CTSIB CTSIB Position 1 30 seconds CTSIB Position 2 30 seconds CTSIB Position 3 30 seconds CTSIB Position 4 30 seconds CTSIB Position 5 30 seconds CTSIB Position 6 30 seconds Lyon Fall Scale Copyright Permission PT-OP-O Vestibular Start: 07/27/19 10:49 Freq: Status: Active Protocol: Document 07/25/19 11:15 DCW (Rec: 07/27/19 11:16 [facility] [id number]) Vestibular Assessment Auditory Tests Desai Test Negative Rinne Test Negative Air Conduction Results Equal Visual Testing Smooth Pursuits Horizontal WNL Smooth Pursuits Vertical WNL Saccades Horizontal WNL Ronnie String Test WNL DVA (Line Degradation) 3 Vestibulo-Ocular Reflex (VOR1) Positive Vestibulo-Ocular Reflex (VOR2) Positive Vestibular Function Tests Fukuda Test WNL Comments Vestibular Comments Sewell Chart: Saccadic reading of columns 1 and 10: 14.64 no errors Saccadic reading of full chart : 1'39.91 2 errors PT-OP-T Assessment and Plan Start: 07/27/19 10:49 Freq: Status: Active Protocol: Document 12/07/19 09:30 DCW (Rec: 12/07/19 09:32 [facility] [id number]) Physical Therapy Assessment Assessment Summary Assessment Pt did not schedule any follow up visits, and has now not been seen in more than three months. Pt will be discharged from skilled therapy at this time, and will require a new referral in order to return. Physical Therapy Plan Discharge Physical Therapy Discharge Reasons No Longer Attending PT
== END 2019-12-24 12:59 ==
LOC: PHYS 15:15
PROVIDERS: Referring Provider Otolaryngology; Visit Provider Otolaryngology
DX: H81.399 Other peripheral vertigo, unspecified ear (principal)
CPT/HCPCS: 97112; 97163

== ENCOUNTER 2020-08-31 10:18 | Emergency (ER) | payer OTHER, MEDICAID, SELFPAY ==
[2020-08-31] VITALS (10 sets, daily range): BP systolic 103–128; BP diastolic 69–76; PULSE 72–94; RESP 16–22; TEMP 36.9; O2SAT 98–100; BMI 20.3
--- NOTE | 2020-08-31 10:38 | DI.RAD.S_ITS ---
PROCEDURE: XR CHEST 2V INDICATIONS: SOB/pain under L ribs/no trauma. TECHNIQUE: 2 views of the chest were acquired. COMPARISON: None. FINDINGS: Surgical changes and devices: None. Lungs and pleura: Lungs are clear. No pleural effusions or pneumothorax. Mediastinum: Mediastinal contours are normal. Heart size is normal. Bones and chest wall: No suspicious bony abnormalities. Soft tissues appear unremarkable. IMPRESSION: No evidence acute pulmonary process. Dictated by: Luis Pagan M.D. on 08/31/2020 at 10:01 Approved by: Luis Pagan M.D. on 08/31/2020 at 10:02
--- NOTE | 2020-08-31 13:34 | PC.NURSE ---
Educated pt on ordered IV and blood draw procedure, pt agreeable to blood draw but refused IV at this time.
[2020-08-31 13:46] LABS: Alanine Aminotransferase 17 IU/L (<35); Albumin 4.1 g/dL (3.5-5.0); Albumin Globulin Ratio 1.3 (1.0-2.8); Alkaline Phosphatase 51 U/L (38-126); Aspartate Aminotransferase 19 IU/L (14-36); BUN Creatinine Ratio 17.6 (6-22); Bilirubin Total 0.5 mg/dL (0.2-1.3); Blood Urea Nitrogen 9 mg/dL (7-17); Carbon Dioxide 21 mmol/L (22-32); Chloride 110 mmol/L (98-107); Creatine Kinase 63 U/L (30-135); Estimated Glomerular Filt Rate > 60.0 mL/min (>60); Globulin 3.2 g/dL (1.7-4.1); Glucose 87 mg/dL (70-100); HEMOLYSIS < 15 (0-50); Lipase 112 U/L (23-300); Potassium 3.8 mmol/L (3.4-5.1); Sodium 138 mmol/L (137-145); Total Protein 7.3 g/dL (6.3-8.2)
--- NOTE | 2020-08-31 13:47 | ED_ITS ---
HPI - Chest Pain General Chief Complaint: Chest Pain Stated Complaint: camacho pain below rib cage and cant breathe Time Seen by Provider: 08/31/20 13:47 Source: patient Mode of arrival: Ambulatory Limitations: no limitations History of Present Illness HPI narrative: This is a 34-year-old female comes emergency department with complaint of sharp pain on her left lower ribcage. Patient states she has pain with deep inspiration. Patient has not any fevers or chills, no cold cough or congestion. She states she feels little short of breath. Patient denies any nausea vomiting. She denies any swelling in her extremities. No diarrhea constipation. No urinary symptoms. patient has not had any rashes or skin changes. No recent trauma or injuries. Patient has not had similar symptoms in the past she states it started about a week ago, she took an aspirin which seemed to help the pain and then it reoccurred. She tried aspirin again without any improvement. Patient has not tried any Tylenol or ibuprofen. She denies any cardiac, pulmonary embolic family history. No tobacco, alcohol or illicit. she states she has a history of unilateral migraine vertigo and sees a neurologist. She does take 1 medication but cannot recall The name. She has had hysterectomy, ovarian cyst, Lasix and tubal ligation in the past. Related Data Previous Rx's Medication Instructions Recorded diazepam [Valium] 2 mg PO Q12HR PRN #10 tab 11/29/18 ondansetron 4 mg PO Q8H PRN #10 tab 11/29/18 Allergies Allergy/AdvReac Type Severity Reaction Status Date / Time morphine [MORPHINE] Allergy Unknown HIVES Verified 11/29/18 14:43 prochlorperazine AdvReac Severe Hallucinati Verified 11/29/18 14:43 ng Review of Systems Review of Systems ROS Unobtainable: All systems reviewed & are unremarkable except as noted in HPI and below Patient History Surgical History History of hysterectomy Social History marital status: household members: spouse Smoking Status: Never smoker Smoking Status: Never smoker Substance Use Type: does not use Exam Narrative Exam Narrative: GENERAL: Alert and oriented x three, Well-nourished female in mild to moderate distress. HEENT: Head normocephalic, atraumatic, EOMI, pupils reactive, face symmetric, moist mucous membranes NECK: Supple, full range of motion CARDIOVASCULAR: Regular rate and rhythm without murmurs, rubs or gallops. Pat ient does have reproducible chest pain over the left ribs. No redness warmth, erythema, vesicles or skin changes. No ecchymosis. RESPIRATORY: Breath sounds equal bilaterally, no wheezes rales or rhonchi. ABDOMEN: Soft, nontender. Normoactive bowel sounds all 4 quadrants. No guarding or rebound, rigidity, no mass : No CVA tenderness EXTREMITIES: Normal range of motion, no clubbing or edema. Neurovascularly intact. NEUROLOGICAL: Cranial nerves II through XII grossly intact. Moving all ex tremities SKIN: Warm, dry, no petechiae, no rashes or lesions. Initial Vital Signs Initial Vital Signs: Vital Signs Temperature 98.4 F 08/31/20 10:30 Pulse Rate 94 H 08/31/20 10:30 Respiratory Rate 22 08/31/20 10:30 Blood Pressure 128/76 08/31/20 10:30 Pulse Oximetry 100 08/31/20 10:30 Scores HEART Score Heart Score history: Slightly Suspicious Heart Score EKG: Non-Specific repolarization disturbance Heart Score Age: < 45 years old Heart Score risk factors: No known risk factors Heart Score troponin: < or = to normal limit Heart Score Total: 1 PERC Score Age greater than or equal to 50 years: No Heart rate greater than or equal to 100 bpm: No Room Air O2 Sat less than 95%: No Unilateral leg swelling: No Recent trauma or surgery: No Hemoptysis: No Prior PE or DVT: No Hormone Use: No Total PERC Score: 0 Course Orders Ordered: ED Orders 08/31/20 13:25 Complete Blood Count AUTO DIFF Stat Comprehensive Metabolic Panel Stat Lipase Stat Troponin & CK Cardiac Panel Stat Discontinued Medications Acetaminophen (Acetaminophen 325 Mg Tablet) 975 mg PO NOW ONE Stop: 08/31/20 14:00 Last Admin: 08/31/20 14:12 Dose: 975 mg Documented by: TIERA Vital Signs Vital signs: Vital Signs - 8 hr 08/31/20 12:05 08/31/20 12:30 08/31/20 13:00 Pulse Rate 83 75 72 Blood Pressure 114/70 111/69 106/71 Pulse Oximetry 100 100 99 08/31/20 13:30 08/31/20 14:00 08/31/20 14:30 Pulse Rate 83 82 81 Blood Pressure 103/72 110/76 103/73 Pulse Oximetry 99 99 99 08/31/20 15:00 Pulse Rate 83 Blood Pressure Pulse Oximetry 98 MDM - Chest Pain Lab Data Attestation: I reviewed the patient's lab results. Result diagrams: 08/31/20 13:25 08/31/20 13:25 Labs: Lab Results 08/31/20 08/31/20 Range/Units 13:25 13:25 WBC 4.1 L (4.5-11.0) X10^3/uL RBC 4.38 (4.0-5.2) X10^6/uL Hgb 12.0 (12.0-16.0) g/dL Hct 36.9 (36-46) % MCV 84.3 (80-100) fL MCH 27.5 (26-34) PG MCHC 32.6 (30-36) % RDW 13.7 (11.6-14.8) % Plt Count 167 (150-400) X10^3/uL Neut % (Auto) 44.6 L (50-75) % Lymph % (Auto) 46.4 H (25-40) % [place] % (Auto) 7.6 (3-14) % Eos % (Auto) 0.8 L (2-4) % Baso % (Auto) 0.6 (0-2) % Neut # (Auto) 1800 (8521-2969) /uL Lymph # (Auto) 1900 (8019-3498) /uL [place] # (Auto) 300 (0-900) /uL Eos # (Auto) 0 (0-450) /uL Baso # (Auto) 0 (0-100) /uL Sodium 138 (137-145) mmol/L Potassium 3.8 (3.4-5.1) mmol/L Chloride 110 H (98-107) mmol/L Carbon Dioxide 21 L (22-32) mmol/L BUN 9 (7-17) mg/dL Creatinine 0.51 L (0.52-1.04) mg/dL Estimated GFR > 60.0 (>60) mL/min BUN/Creatinine Ratio 17.6 (6-22) Glucose 87 (70-100) mg/dL Calcium 9.0 (8.4-10.2) mg/dL Total Bilirubin 0.5 (0.2-1.3) mg/dL AST 19 (14-36) IU/L ALT 17 (<35) IU/L Alkaline Phosphatase 51 (38-126) U/L Total Creatine Kinase 63 (30-135) U/L CK-MB (CK-2) TNP CK-MB (CK-2) Rel Index TNP Troponin I < 0.012 (0.01-0.034) ng/mL Total Protein 7.3 (6.3-8.2) g/dL Albumin 4.1 (3.5-5.0) g/dL Globulin 3.2 (1.7-4.1) g/dL Albumin/Globulin Ratio 1.3 (1.0-2.8) Lipase 112 (23-300) U/L Imaging Data Chest x-ray: Radiologist's Impression: [address] [id number] ReportSigned Patient: Isabel Michelle R#: [id number]: [id number]:[id number]/Sex: 34 / FDate of Service: 08/31/20Loc: EDAccession Number: [id number] Procedure: XR chest 2V Ordering Provider: Julissa Salmeron D.O. PROCEDURE: XR CHEST 2V INDICATIONS: SOB/pain under L ribs/no trauma. TECHNIQUE: 2 views of the chest were acquired. COMPARISON: None. FINDINGS: Surgical changes and devices: None. Lungs and pleura: Lungs are clear. No pleural effusions or pneumothorax. Mediastinum: Mediastinal contours are normal. Heart size is normal. Bones and chest wall: No suspicious bony abnormalities. Soft tissues appear unremarkable. IMPRESSION: No evidence acute pulmonary process. Dictated by: Luis Pagan M.D. on 08/31/2020 at 10:01 Approved by: Luis Pagan M.D. on 08/31/2020 at 10:0 ECG Data Attestation: I personally reviewed and interpreted this ECG as follows: Interpretation: Sinus rhythm with sinus arrhythmia, rate of 91 P are 148 QRS 76 and QTC 428[address] No ST elevation appreciated. Some nonspecific change particularly in V3 V4 4 per possible depression. Patient has prior EKG from 11/29/2018 which has sim [facility] Narrative Medical decision making narrative: This is a 34-year-old female with approximately week of left-sided chest pain which had initially resolved after aspirin then returned and has been persistent. Patient does appear uncomfortable. She has nonspecific EKG change, negative troponin, her other labs do not show any clear cause. We did attempt to get a D-dimer but patient did not wish to have a repeat lab draw. We did discuss that we had not used this to rule out pulmonary embolism but with her reproducible chest pain very localized to the left ribs my suspicion for cardiac, embolic cause was significantly lower. Return precautions were discussed. We did discuss also the patient can try ibuprofen/ NSAIDs for discomfort, Tylenol and she does have lidocaine patches at home and this is a possibility as well. If she has new erythema or skin changes she goes is a possibility although she is approximately week and her symptoms are expect rash to of shown by now. Patient and I did d iscuss all mother potential causes and return precautions. Discharge Plan Departure Patient Disposition: Home Clinical Impression: Chest pain Instructions: DI for Atypical Chest Pain Activity Restrictions/Additional Instructions: Follow up with your physician if you are not having improvement in the next several days. Your EKG, Chest xray and labs are reassuring, a ddimer was not included today. Your white blood cell count has been slightly low since 2019. This is something to be aware of and follow with your physician. I suspect your symptoms today are musculoskeletal, possibly costochondritis. If you see any skin changes such as redness or small blisters this with possibly indicate shingles and can sometimes show up several days to a week after symptom onset. If you notice these changes return for recheck. Take medication as prescribed. You may take Tylenol up to a 1000 mg every 8 hours and or ibuprofen up to 800 mg every 8 hours. Please return for worsening symptoms, lightheadedness or passing out, shortness of breath, persistent vomiting, black or bloody stools or other new or concerning symptoms. Prescriptions: No Action diazepam [Valium] 2 mg tablet 2 mg PO Q12HR PRN (Reason: dizziness or vertigo) Qty: 10 RF: 0 ondansetron 4 mg tablet,disintegrating 4 mg PO Q8H PRN (Reason: nausea and vomiting) Qty: 10 RF: 0
[2020-08-31 13:48] LABS: Add Manual Diff / Slide Review NO; Basophils Absolute Auto 0 /uL (0-100); Basophils Percent Auto 0.6 % (0-2); Eosinophils Absolute Auto 0 /uL (0-450); Eosinophils Percent Auto 0.8 % (2-4); Hematocrit 36.9 % (36-46); Lymphocytes Absolute Auto 1900 /uL (1100-4500); Lymphocytes Percent Auto 46.4 % (25-40); Mean Corpuscular HGB Conc 32.6 % (30-36); Mean Corpuscular Hemoglobin 27.5 PG (26-34); Mean Corpuscular Volume 84.3 fL (80-100); Monocytes Absolute Auto 300 /uL (0-900); Monocytes Percent Auto 7.6 % (3-14); Neutrophils Absolute Auto 1800 /uL (1500-7000); Neutrophils Percent Auto 44.6 % (50-75); Platelet Count 167 X10^3/uL (150-400); Red Blood Cell Count 4.38 X10^6/uL (4.0-5.2); Red Cell Distribution Width 13.7 % (11.6-14.8); White Blood Cell Count 4.1 X10^3/uL (4.5-11.0)
[2020-08-31 13:57] LABS: Troponin I < 0.012 ng/mL (0.01-0.034)
[2020-08-31] MEDS: ACETAMINOPHEN 325 MG TABLET 975 MG PO (14:12)
== END 2020-08-31 15:17 | disposition home or self-care (01) ==
PROVIDERS: Emergency Provider Emergency Medicine
DX: R07.89 Other chest pain (principal); R07.81 Pleurodynia; R06.02 Shortness of breath
CPT/HCPCS: 36415; 71046; 80053; 82550; 83690; 84484; 85025; 93005; 99284

== ENCOUNTER 2021-03-15 18:54 | Emergency (ER) | payer OTHER, MEDICAID, SELFPAY ==
[2021-03-15 19:06] VITALS: BP 128/93; PULSE 90; RESP 20; TEMP 36.9; O2SAT 100
[2021-03-15 19:37] LABS: COVID19 -Nasal RAPID Negative (Negative)
--- NOTE | 2021-03-15 21:39 | ED.GENADULT ---
HPI - General Adult General Chief complaint: Upper Respiratory Symptoms Stated complaint: Headache,CP,Fever,Body Aches,Sore Throat Time Seen by Provider: 03/15/21 21:23 Source: patient Mode of arrival: Ambulatory History of Present Illness HPI narrative: Otherwise healthy immunized against COVID 35-year-old female here for evaluation of less than 24 hours of a headache and chest pain and fever and body aches and a sore throat. Has been exposed to individual that has similar symptoms. She was concerned that she had COVID-19. Related Data Previous Rx's Medication Instructions Recorded diazepam 2 mg tablet (Valium) 2 mg PO Q12HR PRN #10 tab 11/29/18 ondansetron 4 mg disintegrating 4 mg PO Q8H PRN #10 tab 11/29/18 tablet Allergies Allergy/AdvReac Type Severity Reaction Status Date / Time morphine [MORPHINE] Allergy Unknown HIVES Verified 11/29/18 14:43 prochlorperazine AdvReac Severe Hallucinati Verified 11/29/18 14:43 ng Review of Systems Constitutional Constitutional: Reports as per HPI and Reports system reviewed and no additional complaints, except as documented ENT Ears, Nose, Mouth, and Throat: Reports system reviewed and no additional complaints, except as documented and Reports as per HPI Respiratory Respiratory: Reports system reviewed and no additional complaints, except as documented Integumentary/Breasts Skin/Breast: Reports system reviewed and no additional complaints, except as documented Hematologic/Lymphatic On Anticoagulants: No Patient History Medical History Abdominal pain Surgical History History of hysterectomy Social History marital status: household members: spouse Smoking Status: Never smoker Smoking Status: Never smoker Substance Use Type: does not use Exam Initial Vital Signs Initial Vital Signs: Vital Signs Temperature 98.5 F 03/15/21 19:06 Pulse Rate 90 03/15/21 19:06 Respiratory Rate 20 03/15/21 19:06 Blood Pressure 128/93 H 03/15/21 19:06 Pulse Oximetry 100 03/15/21 19:06 Const General: cooperative and healthy appearing HENVA Head: normal to inspection and normocephalic Resp Effort & Inspection: normal respiratory effort Auscultation: clear to auscultation bilaterally Cardio Rate: regular rate Rhythm: regular rhythm Skin General: no rashes or lesions noted Extrem General: normal to inspection Psych Appearance: grossly normal and well kempt Course Orders Ordered: ED Orders 03/15/21 19:16 COVID19 -Nasal swab/Pre-Proc Stat Vital Signs Vital signs: Vital Signs - 8 hr 03/15/21 19:06 Temperature 98.5 F Pulse Rate 90 Respiratory Rate 20 Blood Pressure 128/93 H Pulse Oximetry 100 Medical Decision Making Lab Data Labs: Lab Results 03/15/21 Range/Units 19:16 SARS-CoV-2 (PCR) Negative (Negative) MDM Narrative Medical decision making narrative: No respiratory distress. Vital signs are unremarkable. Afebrile. Clear lung exam. Not hypoxic. Is COVID negative however has had significant exposure to a COVID positive individual. We did discuss this. She is vaccinated. No indication for admission to the hospital. No indication for antibiotics. Patient was given care instructions return precautions. She expressed understanding and agreement. Discharge Plan Departure Patient Disposition: Home Clinical Impression: Upper respiratory infection Instructions: DI for COVID-19 (Suspected or Confirmed ) Activity Restrictions/Additional Instructions: Your COVID-19 test today was negative however given your symptoms and your close exposure to someone who is positive for COVID-19 I would assume that you have COVID. Please follow-up current CDC guidelines with regard to quarantine. You can take Tylenol for any fevers or body aches. Contact your primary doctor for a follow-up. Return to the emergency department for any new or worsening symptoms. Prescriptions: No Action diazepam [Valium] 2 mg tablet 2 mg PO Q12HR PRN (Reason: dizziness or vertigo) Qty: 10 0RF ondansetron 4 mg tablet,disintegrating 4 mg PO Q8H PRN (Reason: nausea and vomiting) Qty: 10 0RF
== END 2021-03-15 21:47 | disposition home or self-care (01) ==
PROVIDERS: Emergency Provider Emergency Medicine
DX: J06.9 Acute upper respiratory infection, unspecified (principal)
CPT/HCPCS: 87635; 99281; C9803

== ENCOUNTER → 2021-06-17 11:17 | Outpatient (CLI) | payer OTHER, MEDICAID, SELFPAY ==
--- NOTE | 2021-06-17 11:19 | DI.MRI.S_ITS ---
PROCEDURE: MR HEAD/BRAIN WO CON INDICATIONS: chronic severe headaches TECHNIQUE: Noncontrast axial T1 spin echo, axial T2 fast spin echo, sagittal and axial FLAIR, coronal T2 fast spin echo, axial gradient echo, axial diffusion and ADC through the brain. COMPARISON: None. FINDINGS: Image quality: Excellent. CSF Spaces: Basal cisterns are patent. No extra-axial fluid collections. Ventricles are normal in size and shape. Brain: No intracranial masses or hemorrhage. [place]/white matter interface is normal. Brainstem appears normal. A few scattered foci of T2 weighted hyperintensity can be seen within the white matter, including within the juxtacortical white matter. Diffusion-weighted images demonstrate no acute ischemic insult. No chronic ischemic insults. Normal intravascular flow voids are present. Skull and face: Calvarium has normal marrow signal. Orbits appear normal. Sinuses: Sinuses and mastoids are clear. IMPRESSION: A cause of headache is not identified on these images. Scattered foci of T2 weighted hyperintensity can be seen, including within the juxtacortical white matter, which are nonspecific. In a female patient of this age, with this given history, please consider sequelae of migraine headaches versus early multiple sclerosis. Dictated by: Chad Villatoro M.D. on 06/17/2021 at 12:02 Approved by: Chad Villatoro M.D. on 06/17/2021 at 12:04
== END ==
PROVIDERS: PCP Family Medicine; Referring Provider Family Medicine; Visit Provider Family Medicine
DX: G43.109 Migraine with aura, not intractable, without status migrainosus; G43.809 Other migraine, not intractable, without status migrainosus; G89.29 Other chronic pain
CPT/HCPCS: 70551

== ENCOUNTER 2021-10-28 14:30 | Outpatient (RCR) | payer OTHER, MEDICAID, SELFPAY ==
--- NOTE | 2021-06-25 10:30 | PT.OPPOC ---
Physical, Occupational & Speech Therapy At [facility] Current Diagnoses Migraine with aura, not intractable, without status migrainosus (06/25/21) Other migraine, not intractable, without status migrainosus (06/25/21) Dizziness and giddiness (06/25/21) Visit Care Team Role Provider Type Lorne Beyer MD Attending Provider Physician Family Provider Primary Care Provider Referring Provider Specialty: Family Practice Address: [address] [place] [address], [facility] Email: [email or web address] Plan Of Care PT-OP-T Assessment and Plan Start: 06/25/21 15:46 Freq: Status: Active Protocol: Document 06/25/21 09:45 DCW (Rec: 06/26/21 08:45 DCW [id number]) Physical Therapy Assessment Rehab Potential Rehabilitation Potential Excellent Evaluation Complexity Number of Personal Factors/Comorbidities 3 or More Number of Body Systems Impaired 4 or More Clinical Presentation at Evaluation Unstable Impairments Impairments Activity Tolerance,Balance, Coordination,Functional Activities,Functional Mobility ,Pain,Vestibular,Visual Motor Goals Three Impairment Pt reports diplopia during convergence testing at 29 cm Fci Goal (LTG) Pt to demonstrate ability to maintain single vision with convergence testing until target is within 10 cm in order to help reduce visual motion sensitivity. LTG Duration 09/24/21 Two Impairment Pt reports episodes of sustained dizziness 3x/week Graphic Artist Goal (LTG) Pt to report reduction of symptomatic days suffering from vertiginous symptoms to 1x/week LTG Duration 09/24/21 One Impairment Pt does not have an appropriate home exercise program Short Term Goal (STG) Pt to be independent and compliant with an appropriate HEP STG Duration 07/25/21 Assessment Summary Assessment Pt presents with signs and symptoms consistent with vestibular migraine and vestibular hypofunction. Pt has severe history of constant migraine, as well as increased vertiginous symptoms 3x/week. 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 Pt struggles with convergence , complaining of diplopia when target is still 29 cm away. Majority of pt's symptoms are subjective, pt does not exhibit any visual nystagmus, but any relatively quick head movement appear to cause pt discomfort and c/o dizziness. Pt additionally notes difficulty with most activities that include increased visual motion. Pt may benefit from skilled therapy focusing on vestibular intervention, visual motor exercises, and habituation/ adaptation training. Follow-up with MRI results may be necessary to rule in/out other potential central causes of symptoms. Physical Therapy Plan Frequency and Duration Frequency of Treatment 2x/Week Duration of Treatment Three months Plan of Care Start Date 06/26/21 Plan of Care End Date 09/25/21 Therapeutic Interventions Therapeutic Interventions Balance Training,Coordination Training,Home Exercise Program ,Manual Therapy,Neuromuscular Re-education,Patient/Caregiver Education,Self-Care/Home Management,Soft Tissue Mobilization,Therapeutic Activities,Therapeutic Exercises,Vestibular Rehabilitation Next Visit Focus/Plan Next Note Type Treatment Note Next Visit Plan Vestibular rehabilitation, convergence training, balance training Plan of Care Dates Plan of Care Start Date 06/26/21 Plan of Care End Date 09/25/21 Electronically Signed by: Yuri Vargas, PT 06/26/21 0847 If you are in agreement with this Plan of Care, please return a signed and dated copy. I have reviewed this Plan of Care and certify that the skilled therapy services above are required to meet the patient?s needs. Physician Signature Date Printed Name and Credentials Clinical Instructor Signature Printed Name and Credentials
--- NOTE | 2021-06-25 10:30 | PT.OIE ---
Current Diagnoses Migraine with aura, not intractable, without status migrainosus (06/25/21) Other migraine, not intractable, without status migrainosus (06/25/21) Dizziness and giddiness (06/25/21) Past Medical History (Last Updated 05/26/21 @ 10:19 by Lorne Beyer MD) Abdominal pain Chronic migraine with aura History of hysterectomy Vestibular migraine Past Surgical History (Last Reviewed 03/16/21 @ 02:12 by Justin Banuelos DO) History of hysterectomy Visit Care Team Role Provider Type Lorne Beyer MD Attending Provider Physician Family Provider Primary Care Provider Referring Provider Specialty: Family Practice Address: [address] [place] [address] Email: [email or web address] Therapy Initial Evaluation PT-OP-A Visit Information Start: 06/25/21 15:46 Freq: Status: Active Protocol: Document 06/25/21 09:45 DCW (Rec: 06/25/21 15:55 DCW [id number]) Out-Patient Physical Therapy Visit Information Visit Information Visit Type Initial Evaluation Visit Start Time 09:45 Visit Stop Time 10:30 Total Visit Minutes 45 Visit Number 1 Number of BINDING CEMENTER FRENCH CORD Visits 0 Evaluation Information Evaluation Date 06/25/21 PT-OP-B Current Condition Start: 06/25/21 15:46 Freq: Status: Active Protocol: Document 06/25/21 09:45 DCW (Rec: 06/25/21 17:54 DCW [id number]) Current Condition History of Current Condition Onset Date Multi-year history Current Complaints Vertiginous migraine, visual motion sensitivity History of Current Condition Pt is a 35 year old female with a long-standing history of migraine, vertigo, and visual-motion sensitivity. Pt was previously seen at this clinic for brief sessions for with the same complaints twice before, with limited benefit. Pt notes since she was last here ~2 years ago, her neurologist has tried a multitude of medications, none of which helped. Pt recently transferred care to a new PCP, who ordered an MRI and recommended return to PT. Pt notes her symptoms have been worse recently, she has migraines every day, dizziness 3x/week, and severe episodes of vertigo including vomiting and being bed-bound 1x/month. Notes mornings are worst most of the time, and she has been having some numbness and tingling in her hands and at the base of her neck. Also notes ringing in her ears constantly, as well as pressure, it feels like an air-pump going into my ears and is about to explode. Notes that she had her MRI performed last week, and then yesterday got a call from radiology stating that she needed a follow-up with her PCP to go over imaging, but she was not able to get in for another month, so she is anxiously awaiting these results. PT-OP-C Subjective Start: 06/25/21 15:46 Freq: Status: Active Protocol: Document 06/25/21 09:45 DCW (Rec: 06/25/21 15:55 DCW [id number]) OP-PT Subjective Patient Comments Patient Comments I've just had a hard time getting people to listen. I've been saying for the last two years that physical therapy is the only thing that has ever seemed to help, and it took this long to finally get in. Patient Reported Progress Worse Patient Questionnaires Dizziness Handicap Inventory DHI Score 48% DHI Functional Impairment 40 to 59% Impaired (Score 40- 59) OP-PT Pain Assessment Location Head Intensity 10 Scale Used Numeric (0 - 10) PT-OP-D Balance Start: 06/25/21 15:46 Freq: Status: Active Protocol: Document 06/25/21 09:45 DCW (Rec: 06/25/21 15:56 DCW [id number]) Balance Tests CTSIB CTSIB Position 1 30+ CTSIB Position 2 30+ CTSIB Position 3 30+ CTSIB Position 4 30+ CTSIB Position 5 30+ CTSIB Position 6 12 PT-OP-O Vestibular Start: 06/25/21 15:46 Freq: Status: Active Protocol: Document 06/25/21 09:45 DCW (Rec: 06/25/21 15:59 DCW [id number]) Vestibular Assessment Auditory Tests Rinne Test Negative Air Conduction Results Equal Visual Testing Smooth Pursuits Horizontal WNL Smooth Pursuits Vertical WNL Saccades Horizontal WNL, c/o dizziness Heave Test c/o dizzy Thrust Head c/o dizzy Convergence Test Impaired Spontaneous Nystagmus Negative Positional Testing [place]-Hallpike Negative Left,Negative Right Comments Vestibular Comments Subjective symptoms with saccads, R hallpike, but no nystagmus. Convergence testing shows diplopia starts at 29 cm PT-OP-T Assessment and Plan Start: 06/25/21 15:46 Freq: Status: Active Protocol: Document 06/25/21 09:45 DCW (Rec: 06/26/21 08:45 DCW [id number]) Physical Therapy Assessment Rehab Potential Rehabilitation Potential Excellent Evaluation Complexity Number of Personal Factors/Comorbidities 3 or More Number of Body Systems Impaired 4 or More Clinical Presentation at Evaluation Unstable Impairments Impairments Activity Tolerance,Balance, Coordination,Functional Activities,Functional Mobility ,Pain,Vestibular,Visual Motor Goals Three Impairment Pt reports diplopia during convergence testing at 29 cm Support Associate Goal (LTG) Pt to demonstrate ability to maintain single vision with convergence testing until target is within 10 cm in order to help reduce visual motion sensitivity. LTG Duration 09/24/21 Two Impairment Pt reports episodes of sustained dizziness 3x/week Support Associate Goal (LTG) Pt to report reduction of symptomatic days suffering from vertiginous symptoms to 1x/week LTG Duration 09/24/21 One Impairment Pt does not have an appropriate home exercise program Short Term Goal (STG) Pt to be independent and compliant with an appropriate HEP STG Duration 07/25/21 Assessment Summary Assessment Pt presents with signs and symptoms consistent with vestibular migraine and vestibular hypofunction. Pt has severe history of constant migraine, as well as increased vertiginous symptoms 3x/week. 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 Pt struggles with convergence , complaining of diplopia when target is still 29 cm away. Majority of pt's symptoms are subjective, pt does not exhibit any visual nystagmus, but any relatively quick head movement appear to cause pt discomfort and c/o dizziness. Pt additionally notes difficulty with most activities that include increased visual motion. Pt may benefit from skilled therapy focusing on vestibular intervention, visual motor exercises, and habituation/ adaptation training. Follow-up with MRI results may be necessary to rule in/out other potential central causes of symptoms. Physical Therapy Plan Frequency and Duration Frequency of Treatment 2x/Week Duration of Treatment Three months Plan of Care Start Date 06/26/21 Plan of Care End Date 09/25/21 Therapeutic Interventions Therapeutic Interventions Balance Training,Coordination Training,Home Exercise Program ,Manual Therapy,Neuromuscular Re-education,Patient/Caregiver Education,Self-Care/Home Management,Soft Tissue Mobilization,Therapeutic Activities,Therapeutic Exercises,Vestibular Rehabilitation Next Visit Focus/Plan Next Note Type Treatment Note Next Visit Plan Vestibular rehabilitation, convergence training, balance training
--- NOTE | 2021-07-01 12:01 | PT.OTN ---
Current Diagnoses Migraine with aura, not intractable, without status migrainosus (07/01/21) Other migraine, not intractable, without status migrainosus (07/01/21) Dizziness and giddiness (07/01/21) Physical Therapy Treatment Note PT-OP-A Visit Information Start: 06/25/21 15:46 Freq: Status: Active Protocol: Document 07/01/21 11:15 DCW (Rec: 07/01/21 12:01 DCW [id number]) Out-Patient Physical Therapy Visit Information Visit Information Visit Type Treatment Note Visit Start Time 11:15 Visit Stop Time 12:00 Total Visit Minutes 45 Visit Number 2 Number of PHERESIS SPECIALIST Visits 0 Evaluation Information Evaluation Date 06/25/21 PT-OP-B Current Condition Start: 06/25/21 15:46 Freq: Status: Active Protocol: Document 06/25/21 09:45 DCW (Rec: 06/25/21 17:54 DCW [id number]) Current Condition History of Current Condition Onset Date Multi-year history Current Complaints Vertiginous migraine, visual motion sensitivity History of Current Condition Pt is a 35 year old female with a long-standing history of migraine, vertigo, and visual-motion sensitivity. Pt was previously seen at this clinic for brief sessions for with the same complaints twice before, with limited benefit. Pt notes since she was last here ~2 years ago, her neurologist has tried a multitude of medications, none of which helped. Pt recently transfered care to a new PCP, who ordered an MRI and recommended return to PT. Pt notes her symptoms have been worse recently, she has migraines every day, dizziness 3x/week, and severe episodes of vertigo including vomiting and being bed-bound 1x/month. Notes mornings are worst most of the time, and she has been having some numbness and tingling in her hands and at the base of her neck. Also notes ringing inher ears constantly, as well as pressure, it feels like an air-pump going into my ears and is about to explode. Notes that she had her MRI performed last week, and then yesterday got a call from radiology stating that she needed a follow-up with her PCP to go over imaging, but she was not able to get in for another month, so she is anxiously awaiting these results. PT-OP-C Subjective Start: 06/25/21 15:46 Freq: Status: Active Protocol: Document 07/01/21 11:15 DCW (Rec: 07/01/21 12:01 DCW [id number]) OP-PT Subjective Patient Comments Patient Comments Pt has headache today, but yesterday was bad, had throbbing pain on left side of head. PT-OP-D Balance Start: 06/25/21 15:46 Freq: Status: Active Protocol: Document 06/25/21 09:45 DCW (Rec: 06/25/21 15:56 DCW [id number]) Balance Tests CTSIB CTSIB Position 1 30+ CTSIB Position 2 30+ CTSIB Position 3 30+ CTSIB Position 4 30+ CTSIB Position 5 30+ CTSIB Position 6 12 PT-OP-O Vestibular Start: 06/25/21 15:46 Freq: Status: Active Protocol: Document 06/25/21 09:45 DCW (Rec: 06/25/21 15:59 DCW [id number]) Vestibular Assessment Auditory Tests Rinne Test Negative Air Conduction Results Equal Visual Testing Smooth Pursuits Horizontal WNL Smooth Pursuits Vertical WNL Saccades Horizontal WNL, c/o dizziness Heave Test c/o dizzy Thrust Head c/o dizzy Convergence Test Impaired Spontaneous Nystagmus Negative Positional Testing [place]-Hallpike Negative Left,Negative Right Comments Vestibular Comments Subjective symptoms with saccads, R hallpike, but no nystagmus. Convergence testing shows diplopia starts at 29 cm PT-OP-Q Treatments Start: 06/25/21 15:46 Freq: Status: Active Protocol: Document 07/01/21 11:15 DCW (Rec: 07/01/21 12:01 DCW [id number]) Gym Equipment Shuttle Balance Red Comments WBOS /c Ball Toss Lateral weight shift Neuro Re-Education Treatment Balance Activities Dynamic Gait Details Length of long hallway Comments Horizontal/Vertical head turns Retro Walking Tandem Ambulation Vestibular Rehabilitation Convergence Details Pencil push-ups Disco Ball Comments Only tolerates 10 seconds Targets Details Laser targeting, cursive, maze Background Orla print PT-OP-T Assessment and Plan Start: 06/25/21 15:46 Freq: Status: Active Protocol: Document 07/01/21 11:15 DCW (Rec: 07/01/21 12:01 DCW [id number]) Physical Therapy Assessment Impairments Impairments Activity Tolerance,Balance, Coordination,Functional Activities,Functional Mobility ,Pain,Vestibular,Visual Motor Goals Three Impairment Pt reports diplopia during convergence testing at 29 cm Senior Living Goal (LTG) Pt to demonstrate ability to maintain single vision with convergence testing until target is within 10 cm in order to help reduce visual motion sensitivity. LTG Duration 09/24/21 Two Impairment Pt reports episodes of sustained dizziness 3x/week Senior Living Goal (LTG) Pt to report reduction of symptomatic days suffering from vertiginous symptoms to 1x/week LTG Duration 09/24/21 One Impairment Pt does not have an appropriate home exercise program Short Term Goal (STG) Pt to be independent and compliant with an appropriate HEP STG Duration 07/25/21 Assessment Summary Assessment Pt very clearly visually and mentally fatigued by end of session, did pretty well on Shuttle Balance, struggled much more when using disco ball and working on convergence. Physical Therapy Plan Frequency and Duration Frequency of Treatment 2x/Week Duration of Treatment Three months Plan of Care Start Date 06/26/21 Plan of Care End Date 09/25/21 Therapeutic Interventions Therapeutic Interventions Balance Training,Coordination Training,Home Exercise Program ,Manual Therapy,Neuromuscular Re-education,Patient/Caregiver Education,Self-Care/Home Management,Soft Tissue Mobilization,Therapeutic Activities,Therapeutic Exercises,Vestibular Rehabilitation Next Visit Focus/Plan Next Note Type Treatment Note Next Visit Plan Vestibular rehabilitation, convergence training, balance training
--- NOTE | 2021-07-08 11:58 | PT.OTN ---
Current Diagnoses Migraine with aura, not intractable, without status migrainosus (07/08/21) Other migraine, not intractable, without status migrainosus (07/08/21) Dizziness and giddiness (07/08/21) Physical Therapy Treatment Note PT-OP-A Visit Information Start: 06/25/21 15:46 Freq: Status: Active Protocol: Document 07/08/21 11:16 DCW (Rec: 07/08/21 11:58 DCW [id number]) Out-Patient Physical Therapy Visit Information Visit Information Visit Type Treatment Note Visit Start Time 11:16 Visit Stop Time 11:50 Total Visit Minutes 34 Visit Number [address] Visits [address] Evaluation Information Evaluation Date 06/25/21 PT-OP-B Current Condition Start: 06/25/21 15:46 Freq: Status: Active Protocol: Document 06/25/21 09:45 DCW (Rec: 06/25/21 17:54 DCW [id number]) Current Condition History of Current Condition Onset Date Multi-year history Current Complaints Vertiginous migraine, visual motion sensitivity History of Current Condition Pt is a 35 year old female with a long-standing history of migraine, vertigo, and visual-motion sensitivity. Pt was previously seen at this clinic for brief sessions for with the same complaints twice before, with limited benefit. Pt notes since she was last here ~2 years ago, her neurologist has tried a multitude of medications, none of which helped. Pt recently transfered care to a new PCP, who ordered an MRI and recommended return to PT. Pt notes her symptoms have been worse recently, she has migraines every day, dizziness 3x/week, and severe episodes of vertigo including vomiting and being bed-bound 1x/month. Notes mornings are worst most of the time, and she has been having some numbness and tingling in her hands and at the base of her neck. Also notes ringing inher ears constantly, as well as pressure, it feels like an air-pump going into my ears and is about to explode. Notes that she had her MRI performed last week, and then yesterday got a call from radiology stating that she needed a follow-up with her PCP to go over imaging, but she was not able to get in for another month, so she is anxiously awaiting these results. PT-OP-C Subjective Start: 06/25/21 15:46 Freq: Status: Active Protocol: Document 07/08/21 11:16 DCW (Rec: 07/08/21 11:58 DCW [id number]) OP-PT Subjective Patient Comments Patient Comments Same old, same old. Admits that she was very fatigued last week, had a lot of spasm in her neck and back. PT-OP-D Balance Start: 06/25/21 15:46 Freq: Status: Active Protocol: Document 06/25/21 09:45 DCW (Rec: 06/25/21 15:56 DCW [id number]) Balance Tests CTSIB CTSIB Position 1 30+ CTSIB Position 2 30+ CTSIB Position 3 30+ CTSIB Position 4 30+ CTSIB Position 5 30+ CTSIB Position 6 12 PT-OP-O Vestibular Start: 06/25/21 15:46 Freq: Status: Active Protocol: Document 06/25/21 09:45 DCW (Rec: 06/25/21 15:59 DCW [id number]) Vestibular Assessment Auditory Tests Rinne Test Negative Air Conduction Results Equal Visual Testing Smooth Pursuits Horizontal WNL Smooth Pursuits Vertical WNL Saccades Horizontal WNL, c/o dizziness Heave Test c/o dizzy Thrust Head c/o dizzy Convergence Test Impaired Spontaneous Nystagmus Negative Positional Testing [place]-Hallpike Negative Left,Negative Right Comments Vestibular Comments Subjective symptoms with saccads, R hallpike, but no nystagmus. Convergence testing shows diplopia starts at 29 cm PT-OP-Q Treatments Start: 06/25/21 15:46 Freq: Status: Active Protocol: Document 07/08/21 11:16 DCW (Rec: 07/08/21 11:58 DCW [id number]) Therapeutic Exercises Sitting Exercises 1 Sitting Exercise Name Chin tucks Standing Exercises 1 Standing Exercise Name Cervical side-bends Side bilateral Manual Therapy Treatment Soft Tissue Mobilization 1 Body Location B UT, Suboccipitals Mobilization Type Sustained Pressure,Trigger Point Release Intensity/Depth Superficial Body Position Supine Comments Pt tolerated poorly, increased pain/headache Neuro Re-Education Treatment Balance Activities Dynamic Gait Details Length of long hallway Comments Horizontal/Vertical head turns PT-OP-T Assessment and Plan Start: 06/25/21 15:46 Freq: Status: Active Protocol: Document 07/08/21 11:16 DCW (Rec: 07/08/21 11:58 DCW [id number]) Physical Therapy Assessment Impairments Impairments Activity Tolerance,Balance, Coordination,Functional Activities,Functional Mobility ,Pain,Vestibular,Visual Motor Goals Three Impairment Pt reports diplopia during convergence testing at 29 cm Forest Worker Goal (LTG) Pt to demonstrate ability to maintain single vision with convergence testing until target is within 10 cm in order to help reduce visual motion sensitivity. LTG Duration 09/24/21 Two Impairment Pt reports episodes of sustained dizziness 3x/week Long-Term Goal (LTG) Pt to report reduction of symptomatic days suffering from vertiginous symptoms to 1x/week LTG Duration 09/24/21 One Impairment Pt does not have an appropriate home exercise program Short Term Goal (STG) Pt to be independent and compliant with an appropriate HEP STG Duration 07/25/21 Assessment Summary Assessment Pt fatigued by end of session, struggled with pencil push- ups. Additionally, pt did not respond well to attempted STM, worsened symptoms. Decided to end session early due to pt's symptoms. Physical Therapy Plan Frequency and Duration Frequency of Treatment 2x/Week Duration of Treatment Three months Plan of Care Start Date 06/26/21 Plan of Care End Date 09/25/21 Therapeutic Interventions Therapeutic Interventions Balance Training,Coordination Training,Home Exercise Program ,Manual Therapy,Neuromuscular Re-education,Patient/Caregiver Education,Self-Care/Home Management,Soft Tissue Mobilization,Therapeutic Activities,Therapeutic Exercises,Vestibular Rehabilitation Next Visit Focus/Plan Next Note Type Treatment Note Next Visit Plan Vestibular rehabilitation, convergence training, balance training
--- NOTE | 2021-07-22 11:59 | PT.OTN ---
Current Diagnoses Migraine with aura, not intractable, without status migrainosus (07/22/21) Other migraine, not intractable, without status migrainosus (07/22/21) Dizziness and giddiness (07/22/21) Physical Therapy Treatment Note PT-OP-A Visit Information Start: 06/25/21 15:46 Freq: Status: Active Protocol: Document 07/22/21 11:29 DCW (Rec: 07/22/21 11:59 DCW [id number]) Out-Patient Physical Therapy Visit Information Visit Information Visit Type Treatment Note Visit Start Time 11:29 Visit Stop Time 12:00 Total Visit Minutes 31 Visit Number 4 Number of PROCEDURES NURSE Visits 0 Evaluation Information Evaluation Date 06/25/21 PT-OP-B Current Condition Start: 06/25/21 15:46 Freq: Status: Active Protocol: Document 06/25/21 09:45 DCW (Rec: 06/25/21 17:54 DCW [id number]) Current Condition History of Current Condition Onset Date Multi-year history Current Complaints Vertiginous migraine, visual motion sensitivity History of Current Condition Pt is a 35 year old female with a long-standing history of migraine, vertigo, and visual-motion sensitivity. Pt was previously seen at this clinic for brief sessions for with the same complaints twice before, with limited benefit. Pt notes since she was last here ~2 years ago, her neurologist has tried a multitude of medications, none of which helped. Pt recently transfered care to a new PCP, who ordered an MRI and recommended return to PT. Pt notes her symptoms have been worse recently, she has migraines every day, dizziness 3x/week, and severe episodes of vertigo including vomiting and being bed-bound 1x/month. Notes mornings are worst most of the time, and she has been having some numbness and tingling in her hands and at the base of her neck. Also notes ringing inher ears constantly, as well as pressure, it feels like an air-pump going into my ears and is about to explode. Notes that she had her MRI performed last week, and then yesterday got a call from radiology stating that she needed a follow-up with her PCP to go over imaging, but she was not able to get in for another month, so she is anxiously awaiting these results. PT-OP-C Subjective Start: 06/25/21 15:46 Freq: Status: Active Protocol: Document 07/22/21 11:29 DCW (Rec: 07/22/21 11:59 DCW [id number]) OP-PT Subjective Patient Comments Patient Comments Pt notes she had a headache today. PT-OP-D Balance Start: 06/25/21 15:46 Freq: Status: Active Protocol: Document 06/25/21 09:45 DCW (Rec: 06/25/21 15:56 DCW [id number]) Balance Tests CTSIB CTSIB Position 1 30+ CTSIB Position 2 30+ CTSIB Position 3 30+ CTSIB Position 4 30+ CTSIB Position 5 30+ CTSIB Position 6 12 PT-OP-O Vestibular Start: 06/25/21 15:46 Freq: Status: Active Protocol: Document 06/25/21 09:45 DCW (Rec: 06/25/21 15:59 DCW [id number]) Vestibular Assessment Auditory Tests Rinne Test Negative Air Conduction Results Equal Visual Testing Smooth Pursuits Horizontal WNL Smooth Pursuits Vertical WNL Saccades Horizontal WNL, c/o dizziness Heave Test c/o dizzy Thrust Head c/o dizzy Convergence Test Impaired Spontaneous Nystagmus Negative Positional Testing [place]-Hallpike Negative Left,Negative Right Comments Vestibular Comments Subjective symptoms with saccads, R hallpike, but no nystagmus. Convergence testing shows diplopia starts at 29 cm PT-OP-Q Treatments Start: 06/25/21 15:46 Freq: Status: Active Protocol: Document 07/22/21 11:29 DCW (Rec: 07/22/21 11:59 DCW [id number]) Gym Equipment Shuttle Balance Red Comments WBOS EO/EC Neuro Re-Education Treatment Balance Activities Foam stance Details Foam DL standing Surface Mayer foam Tandem stance Details Tandem stance Comments X1 SLS Details SLS Comments X1 Dynamic Gait Details Length of long hallway Comments Horizontal/Vertical head turns Retro Walking Tandem Ambulation PT-OP-T Assessment and Plan Start: 06/25/21 15:46 Freq: Status: Active Protocol: Document 07/22/21 11:29 DCW (Rec: 07/22/21 11:59 DCW [id number]) Physical Therapy Assessment Impairments Impairments Activity Tolerance,Balance, Coordination,Functional Activities,Functional Mobility ,Pain,Vestibular,Visual Motor Goals Three Impairment Pt reports diplopia during convergence testing at 29 cm Mcfp Goal (LTG) Pt to demonstrate ability to maintain single vision with convergence testing until target is within 10 cm in order to help reduce visual motion sensitivity. LTG Duration 09/24/21 Two Impairment Pt reports episodes of sustained dizziness 3x/week Inspector Precision Goal (LTG) Pt to report reduction of symptomatic days suffering from vertiginous symptoms to 1x/week LTG Duration 09/24/21 One Impairment Pt does not have an appropriate home exercise program Short Term Goal (STG) Pt to be independent and compliant with an appropriate HEP STG Duration 07/25/21 Assessment Summary Assessment Pt noticeably less symptomatic this visit, but still required multiple rest breaks today. Very fatigued by end of session again today. Physical Therapy Plan Frequency and Duration Frequency of Treatment 2x/Week Duration of Treatment Three months Plan of Care Start Date 06/26/21 Plan of Care End Date 09/25/21 Therapeutic Interventions Therapeutic Interventions Balance Training,Coordination Training,Home Exercise Program ,Manual Therapy,Neuromuscular Re-education,Patient/Caregiver Education,Self-Care/Home Management,Soft Tissue Mobilization,Therapeutic Activities,Therapeutic Exercises,Vestibular Rehabilitation Next Visit Focus/Plan Next Note Type Treatment Note Next Visit Plan Vestibular rehabilitation, convergence training, balance training
--- NOTE | 2021-07-29 11:51 | PT.OTN ---
Current Diagnoses Migraine with aura, not intractable, without status migrainosus (07/29/21) Other migraine, not intractable, without status migrainosus (07/29/21) Dizziness and giddiness (07/29/21) Physical Therapy Treatment Note PT-OP-A Visit Information Start: 06/25/21 15:46 Freq: Status: Active Protocol: Document 07/29/21 11:15 DCW (Rec: 07/29/21 11:50 DCW [id number]) Out-Patient Physical Therapy Visit Information Visit Information Visit Type Treatment Note Visit Start Time 11:15 Visit Stop Time 11:47 Total Visit Minutes 32 Visit Number 5 Number of ASSET PROTECTION MANAGER Visits 0 Evaluation Information Evaluation Date 06/25/21 PT-OP-B Current Condition Start: 06/25/21 15:46 Freq: Status: Active Protocol: Document 06/25/21 09:45 DCW (Rec: 06/25/21 17:54 DCW [id number]) Current Condition History of Current Condition Onset Date Multi-year history Current Complaints Vertiginous migraine, visual motion sensitivity History of Current Condition Pt is a 35 year old female with a long-standing history of migraine, vertigo, and visual-motion sensitivity. Pt was previously seen at this clinic for brief sessions for with the same complaints twice before, with limited benefit. Pt notes since she was last here ~2 years ago, her neurologist has tried a multitude of medications, none of which helped. Pt recently transfered care to a new PCP, who ordered an MRI and recommended return to PT. Pt notes her symptoms have been worse recently, she has migraines every day, dizziness 3x/week, and severe episodes of vertigo including vomiting and being bed-bound 1x/month. Notes mornings are worst most of the time, and she has been having some numbness and tingling in her hands and at the base of her neck. Also notes ringing inher ears constantly, as well as pressure, it feels like an air-pump going into my ears and is about to explode. Notes that she had her MRI performed last week, and then yesterday got a call from radiology stating that she needed a follow-up with her PCP to go over imaging, but she was not able to get in for another month, so she is anxiously awaiting these results. PT-OP-C Subjective Start: 06/25/21 15:46 Freq: Status: Active Protocol: Document 07/29/21 11:15 DCW (Rec: 07/29/21 11:50 DCW [id number]) OP-PT Subjective Patient Comments Patient Comments Pt comes in very stiff today, reports her left neck and shoulders have been in spasm the last two days. PT-OP-D Balance Start: 06/25/21 15:46 Freq: Status: Active Protocol: Document 06/25/21 09:45 DCW (Rec: 06/25/21 15:56 DCW [id number]) Balance Tests CTSIB CTSIB Position 1 30+ CTSIB Position 2 30+ CTSIB Position 3 30+ CTSIB Position 4 30+ CTSIB Position 5 30+ CTSIB Position 6 12 PT-OP-O Vestibular Start: 06/25/21 15:46 Freq: Status: Active Protocol: Document 06/25/21 09:45 DCW (Rec: 06/25/21 15:59 DCW [id number]) Vestibular Assessment Auditory Tests Rinne Test Negative Air Conduction Results Equal Visual Testing Smooth Pursuits Horizontal WNL Smooth Pursuits Vertical WNL Saccades Horizontal WNL, c/o dizziness Heave Test c/o dizzy Thrust Head c/o dizzy Convergence Test Impaired Spontaneous Nystagmus Negative Positional Testing [place]-Hallpike Negative Left,Negative Right Comments Vestibular Comments Subjective symptoms with saccads, R hallpike, but no nystagmus. Convergence testing shows diplopia starts at 29 cm PT-OP-Q Treatments Start: 06/25/21 15:46 Freq: Status: Active Protocol: Document 07/29/21 11:15 DCW (Rec: 07/29/21 11:50 DCW [id number]) Therapeutic Exercises Sitting Exercises 2 Sitting Exercise Name Upper trap stretch Side left Manual Therapy Treatment Soft Tissue Mobilization 1 Body Location L UT Mobilization Type Sustained Pressure,Trigger Point Release Intensity/Depth Superficial Body Position Sitting Neuro Re-Education Treatment Balance Activities Dynamic Gait Details Length of long hallway Comments Horizontal/Vertical head turns Retro Walking Tandem Ambulation PT-OP-T Assessment and Plan Start: 06/25/21 15:46 Freq: Status: Active Protocol: Document 07/29/21 11:15 DCW (Rec: 07/29/21 11:50 DCW [id number]) Physical Therapy Assessment Impairments Impairments Activity Tolerance,Balance, Coordination,Functional Activities,Functional Mobility ,Pain,Vestibular,Visual Motor Goals Three Impairment Pt reports diplopia during convergence testing at 29 cm Senior Care Goal (LTG) Pt to demonstrate ability to maintain single vision with convergence testing until target is within 10 cm in order to help reduce visual motion sensitivity. LTG Duration 09/24/21 Two Impairment Pt reports episodes of sustained dizziness 3x/week Senior Care Goal (LTG) Pt to report reduction of symptomatic days suffering from vertiginous symptoms to 1x/week LTG Duration 09/24/21 One Impairment Pt does not have an appropriate home exercise program Short Term Goal (STG) Pt to be independent and compliant with an appropriate HEP STG Duration 07/25/21 Assessment Summary Assessment Pt presents today with severe tone/spasm along length of left trap, able to tolerate gentle STM and stretching, reviewed home stretching today . Physical Therapy Plan Frequency and Duration Frequency of Treatment 2x/Week Duration of Treatment Three months Plan of Care Start Date 06/26/21 Plan of Care End Date 09/25/21 Therapeutic Interventions Therapeutic Interventions Balance Training,Coordination Training,Home Exercise Program ,Manual Therapy,Neuromuscular Re-education,Patient/Caregiver Education,Self-Care/Home Management,Soft Tissue Mobilization,Therapeutic Activities,Therapeutic Exercises,Vestibular Rehabilitation Next Visit Focus/Plan Next Note Type Treatment Note Next Visit Plan Vestibular rehabilitation, convergence training, balance training
--- NOTE | 2021-07-31 11:53 | PT.OTN ---
Current Diagnoses Migraine with aura, not intractable, without status migrainosus (07/31/21) Other migraine, not intractable, without status migrainosus (07/31/21) Dizziness and giddiness (07/31/21) Physical Therapy Treatment Note PT-OP-A Visit Information Start: 06/25/21 15:46 Freq: Status: Active Protocol: Document 07/31/21 11:15 DCW (Rec: 07/31/21 11:53 DCW [id number]) Out-Patient Physical Therapy Visit Information Visit Information Visit Type Treatment Note Visit Start Time 11:15 Visit Stop Time 11:50 Total Visit Minutes 35 Visit Number 6 Number of DIAMOND SELECTOR Visits 0 Evaluation Information Evaluation Date 06/25/21 PT-OP-B Current Condition Start: 06/25/21 15:46 Freq: Status: Active Protocol: Document 06/25/21 09:45 DCW (Rec: 06/25/21 17:54 DCW [id number]) Current Condition History of Current Condition Onset Date Multi-year history Current Complaints Vertiginous migraine, visual motion sensitivity History of Current Condition Pt is a 35 year old female with a long-standing history of migraine, vertigo, and visual-motion sensitivity. Pt was previously seen at this clinic for brief sessions for with the same complaints twice before, with limited benefit. Pt notes since she was last here ~2 years ago, her neurologist has tried a multitude of medications, none of which helped. Pt recently transfered care to a new PCP, who ordered an MRI and recommended return to PT. Pt notes her symptoms have been worse recently, she has migraines every day, dizziness 3x/week, and severe episodes of vertigo including vomiting and being bed-bound 1x/month. Notes mornings are worst most of the time, and she has been having some numbness and tingling in her hands and at the base of her neck. Also notes ringing inher ears constantly, as well as pressure, it feels like an air-pump going into my ears and is about to explode. Notes that she had her MRI performed last week, and then yesterday got a call from radiology stating that she needed a follow-up with her PCP to go over imaging, but she was not able to get in for another month, so she is anxiously awaiting these results. PT-OP-C Subjective Start: 06/25/21 15:46 Freq: Status: Active Protocol: Document 07/31/21 11:15 DCW (Rec: 07/31/21 11:53 DCW [id number]) OP-PT Subjective Patient Comments Patient Comments Notes she is miserable today , still very tight in her upper trap. PT-OP-D Balance Start: 06/25/21 15:46 Freq: Status: Active Protocol: Document 06/25/21 09:45 DCW (Rec: 06/25/21 15:56 DCW [id number]) Balance Tests CTSIB CTSIB Position 1 30+ CTSIB Position 2 30+ CTSIB Position 3 30+ CTSIB Position 4 30+ CTSIB Position 5 30+ CTSIB Position 6 12 PT-OP-O Vestibular Start: 06/25/21 15:46 Freq: Status: Active Protocol: Document 06/25/21 09:45 DCW (Rec: 06/25/21 15:59 DCW [id number]) Vestibular Assessment Auditory Tests Rinne Test Negative Air Conduction Results Equal Visual Testing Smooth Pursuits Horizontal WNL Smooth Pursuits Vertical WNL Saccades Horizontal WNL, c/o dizziness Heave Test c/o dizzy Thrust Head c/o dizzy Convergence Test Impaired Spontaneous Nystagmus Negative Positional Testing Magda-Hallpike Negative Left,Negative Right Comments Vestibular Comments Subjective symptoms with saccads, R hallpike, but no nystagmus. Convergence testing shows diplopia starts at 29 cm PT-OP-Q Treatments Start: 06/25/21 15:46 Freq: Status: Active Protocol: Document 07/31/21 11:15 DCW (Rec: 07/31/21 11:53 DCW [id number]) Manual Therapy Treatment Soft Tissue Mobilization 1 Body Location L Upper/Mid Trap Mobilization Type Sustained Pressure,Trigger Point Release Intensity/Depth Superficial Body Position Sitting Neuro Re-Education Treatment Balance Activities Hurdles Details Hurdles/foam Dynamic Gait Details Length of long hallway Comments Retro Walking Tandem Ambulation PT-OP-T Assessment and Plan Start: 06/25/21 15:46 Freq: Status: Active Protocol: Document 07/31/21 11:15 DCW (Rec: 07/31/21 11:53 DCW [id number]) Physical Therapy Assessment Impairments Impairments Activity Tolerance,Balance, Coordination,Functional Activities,Functional Mobility ,Pain,Vestibular,Visual Motor Goals Three Impairment Pt reports diplopia during convergence testing at 29 cm Half-Way Goal (LTG) Pt to demonstrate ability to maintain single vision with convergence testing until target is within 10 cm in order to help reduce visual motion sensitivity. LTG Duration 09/24/21 Two Impairment Pt reports episodes of sustained dizziness 3x/week Half-Way Goal (LTG) Pt to report reduction of symptomatic days suffering from vertiginous symptoms to 1x/week LTG Duration 09/24/21 One Impairment Pt does not have an appropriate home exercise program Short Term Goal (STG) Pt to be independent and compliant with an appropriate HEP STG Duration 07/25/21 Assessment Summary Assessment Pt again fighting through severe spasm, near verge of tears with most head movement, greatly limiting her participation in PT today. Physical Therapy Plan Frequency and Duration Frequency of Treatment 2x/Week Duration of Treatment Three months Plan of Care Start Date 06/26/21 Plan of Care End Date 09/25/21 Therapeutic Interventions Therapeutic Interventions Balance Training,Coordination Training,Home Exercise Program ,Manual Therapy,Neuromuscular Re-education,Patient/Caregiver Education,Self-Care/Home Management,Soft Tissue Mobilization,Therapeutic Activities,Therapeutic Exercises,Vestibular Rehabilitation Other Referrals/Consults Referrals/Consults Recommended Pain management clinic? Next Visit Focus/Plan Next Note Type Treatment Note Next Visit Plan Vestibular rehabilitation, convergence training, balance training
--- NOTE | 2021-09-02 11:53 | PT.OTN ---
Current Diagnoses Migraine with aura, not intractable, without status migrainosus (09/02/21) Other migraine, not intractable, without status migrainosus (09/02/21) Dizziness and giddiness (09/02/21) Physical Therapy Treatment Note PT-OP-A Visit Information Start: 06/25/21 15:46 Freq: Status: Active Protocol: Document 09/02/21 11:15 DCW (Rec: 09/02/21 11:53 DCW [id number]) Out-Patient Physical Therapy Visit Information Visit Information Visit Type Treatment Note Visit Start Time 11:15 Visit Stop Time 11:50 Total Visit Minutes 35 Visit Number 7 Number of EDITOR INDEX Visits 0 Evaluation Information Evaluation Date 06/25/21 PT-OP-B Current Condition Start: 06/25/21 15:46 Freq: Status: Active Protocol: Document 06/25/21 09:45 DCW (Rec: 06/25/21 17:54 DCW [id number]) Current Condition History of Current Condition Onset Date Multi-year history Current Complaints Vertiginous migraine, visual motion sensitivity History of Current Condition Pt is a 35 year old female with a long-standing history of migraine, vertigo, and visual-motion sensitivity. Pt was previously seen at this clinic for brief sessions for with the same complaints twice before, with limited benefit. Pt notes since she was last here ~2 years ago, her neurologist has tried a multitude of medications, none of which helped. Pt recently transfered care to a new PCP, who ordered an MRI and recommended return to PT. Pt notes her symptoms have been worse recently, she has migraines every day, dizziness 3x/week, and severe episodes of vertigo including vomiting and being bed-bound 1x/month. Notes mornings are worst most of the time, and she has been having some numbness and tingling in her hands and at the base of her neck. Also notes ringing inher ears constantly, as well as pressure, it feels like an air-pump going into my ears and is about to explode. Notes that she had her MRI performed last week, and then yesterday got a call from radiology stating that she needed a follow-up with her PCP to go over imaging, but she was not able to get in for another month, so she is anxiously awaiting these results. PT-OP-C Subjective Start: 06/25/21 15:46 Freq: Status: Active Protocol: Document 09/02/21 11:15 DCW (Rec: 09/02/21 11:53 DCW [id number]) OP-PT Subjective Patient Comments Patient Comments Pt reports her trap spasm continued for a total of 3 weeks, but is doing better now . Spontaneous vertigo has returned as of two weeks ago, 3-4x/week, and it lasts 2-3 hours. PT-OP-D Balance Start: 06/25/21 15:46 Freq: Status: Active Protocol: Document 06/25/21 09:45 DCW (Rec: 06/25/21 15:56 DCW [id number]) Balance Tests CTSIB CTSIB Position 1 30+ CTSIB Position 2 30+ CTSIB Position 3 30+ CTSIB Position 4 30+ CTSIB Position 5 30+ CTSIB Position 6 12 PT-OP-O Vestibular Start: 06/25/21 15:46 Freq: Status: Active Protocol: Document 06/25/21 09:45 DCW (Rec: 06/25/21 15:59 DCW [id number]) Vestibular Assessment Auditory Tests Rinne Test Negative Air Conduction Results Equal Visual Testing Smooth Pursuits Horizontal WNL Smooth Pursuits Vertical WNL Saccades Horizontal WNL, c/o dizziness Heave Test c/o dizzy Thrust Head c/o dizzy Convergence Test Impaired Spontaneous Nystagmus Negative Positional Testing [place]-Hallpike Negative Left,Negative Right Comments Vestibular Comments Subjective symptoms with saccads, R hallpike, but no nystagmus. Convergence testing shows diplopia starts at 29 cm PT-OP-Q Treatments Start: 06/25/21 15:46 Freq: Status: Active Protocol: Document 09/02/21 11:15 DCW (Rec: 09/02/21 11:53 DCW [id number]) Gym Equipment Shuttle Balance Blue Details NBOS EO/EC Comments pt c/o dizziness with eyes closed. Neuro Re-Education Treatment Balance Activities Hurdles Details Hurdles/foam Tandem stance Details Tandem stance Comments X1 Dynamic Gait Details Length of long hallway Comments Horizontal/Vertical head turns Retro Walking Tandem Ambulation PT-OP-T Assessment and Plan Start: 06/25/21 15:46 Freq: Status: Active Protocol: Document 09/02/21 11:15 DCW (Rec: 09/02/21 11:53 DCW [id number]) Physical Therapy Assessment Impairments Impairments Activity Tolerance,Balance, Coordination,Functional Activities,Functional Mobility ,Pain,Vestibular,Visual Motor Goals Three Impairment Pt reports diplopia during convergence testing at 29 cm Automobile Leasing Supervisor Goal (LTG) Pt to demonstrate ability to maintain single vision with convergence testing until target is within 10 cm in order to help reduce visual motion sensitivity. LTG Duration 09/24/21 Two Impairment Pt reports episodes of sustained dizziness 3x/week Automobile Leasing Supervisor Goal (LTG) Pt to report reduction of symptomatic days suffering from vertiginous symptoms to 1x/week LTG Duration 09/24/21 One Impairment Pt does not have an appropriate home exercise program Short Term Goal (STG) Pt to be independent and compliant with an appropriate HEP STG Duration 07/25/21 Assessment Summary Assessment Pt much less limited with therapy today since her upper trap has now relaxed, tolerated challenges a bit better, although had more complaints of dizziness today with head turns during ambulation Physical Therapy Plan Frequency and Duration Frequency of Treatment 2x/Week Duration of Treatment Three months Plan of Care Start Date 06/26/21 Plan of Care End Date 09/25/21 Therapeutic Interventions Therapeutic Interventions Balance Training,Coordination Training,Home Exercise Program ,Manual Therapy,Neuromuscular Re-education,Patient/Caregiver Education,Self-Care/Home Management,Soft Tissue Mobilization,Therapeutic Activities,Therapeutic Exercises,Vestibular Rehabilitation Next Visit Focus/Plan Next Note Type Treatment Note Next Visit Plan Vestibular rehabilitation, convergence training, balance training
--- NOTE | 2021-09-11 11:09 | PT.OTN ---
Current Diagnoses Migraine with aura, not intractable, without status migrainosus (09/11/21) Other migraine, not intractable, without status migrainosus (09/11/21) Dizziness and giddiness (09/11/21) Physical Therapy Treatment Note PT-OP-A Visit Information Start: 06/25/21 15:46 Freq: Status: Active Protocol: Document 09/11/21 10:33 DCW (Rec: 09/11/21 11:08 DCW [id number]) Out-Patient Physical Therapy Visit Information Visit Information Visit Type Treatment Note Visit Start Time 10:33 Visit Stop Time 11:05 Total Visit Minutes 32 Visit Number 8 Number of PHOTOGRAPHIC PRESS SCREWMAKER Visits 0 Evaluation Information Evaluation Date 06/25/21 PT-OP-B Current Condition Start: 06/25/21 15:46 Freq: Status: Active Protocol: Document 06/25/21 09:45 DCW (Rec: 06/25/21 17:54 DCW [id number]) Current Condition History of Current Condition Onset Date Multi-year history Current Complaints Vertiginous migraine, visual motion sensitivity History of Current Condition Pt is a 35 year old female with a long-standing history of migraine, vertigo, and visual-motion sensitivity. Pt was previously seen at this clinic for brief sessions for with the same complaints twice before, with limited benefit. Pt notes since she was last here ~2 years ago, her neurologist has tried a multitude of medications, none of which helped. Pt recently transfered care to a new PCP, who ordered an MRI and recommended return to PT. Pt notes her symptoms have been worse recently, she has migraines every day, dizziness 3x/week, and severe episodes of vertigo including vomiting and being bed-bound 1x/month. Notes mornings are worst most of the time, and she has been having some numbness and tingling in her hands and at the base of her neck. Also notes ringing inher ears constantly, as well as pressure, it feels like an air-pump going into my ears and is about to explode. Notes that she had her MRI performed last week, and then yesterday got a call from radiology stating that she needed a follow-up with her PCP to go over imaging, but she was not able to get in for another month, so she is anxiously awaiting these results. PT-OP-C Subjective Start: 06/25/21 15:46 Freq: Status: Active Protocol: Document 09/11/21 10:33 DCW (Rec: 09/11/21 11:08 DCW [id number]) OP-PT Subjective Patient Comments Patient Comments Pt notes she is same ol', same ol'. PT-OP-D Balance Start: 06/25/21 15:46 Freq: Status: Active Protocol: Document 06/25/21 09:45 DCW (Rec: 06/25/21 15:56 DCW [id number]) Balance Tests CTSIB CTSIB Position 1 30+ CTSIB Position 2 30+ CTSIB Position 3 30+ CTSIB Position 4 30+ CTSIB Position 5 30+ CTSIB Position 6 12 PT-OP-O Vestibular Start: 06/25/21 15:46 Freq: Status: Active Protocol: Document 06/25/21 09:45 DCW (Rec: 06/25/21 15:59 DCW [id number]) Vestibular Assessment Auditory Tests Rinne Test Negative Air Conduction Results Equal Visual Testing Smooth Pursuits Horizontal WNL Smooth Pursuits Vertical WNL Saccades Horizontal WNL, c/o dizziness Heave Test c/o dizzy Thrust Head c/o dizzy Convergence Test Impaired Spontaneous Nystagmus Negative Positional Testing Magda-Hallpike Negative Left,Negative Right Comments Vestibular Comments Subjective symptoms with saccads, R hallpike, but no nystagmus. Convergence testing shows diplopia starts at 29 cm PT-OP-Q Treatments Start: 06/25/21 15:46 Freq: Status: Active Protocol: Document 09/11/21 10:33 DCW (Rec: 09/11/21 11:08 DCW [id number]) Gym Equipment Shuttle Balance Red Comments WBOS EO/EC Staggered /c Horiz Head turns Neuro Re-Education Treatment Balance Activities Dynamic Gait Details Length of long hallway Comments Horizontal/Vertical head turns 90->60 bpm Retro Walking Tandem Ambulation PT-OP-T Assessment and Plan Start: 06/25/21 15:46 Freq: Status: Active Protocol: Document 09/11/21 10:33 DCW (Rec: 09/11/21 11:08 DCW [id number]) Physical Therapy Assessment Impairments Impairments Activity Tolerance,Balance, Coordination,Functional Activities,Functional Mobility ,Pain,Vestibular,Visual Motor Goals Three Impairment Pt reports diplopia during convergence testing at 29 cm Longterm Goal (LTG) Pt to demonstrate ability to maintain single vision with convergence testing until target is within 10 cm in order to help reduce visual motion sensitivity. LTG Duration 09/24/21 Two Impairment Pt reports episodes of sustained dizziness 3x/week Paperhanger Apprentice Goal (LTG) Pt to report reduction of symptomatic days suffering from vertiginous symptoms to 1x/week LTG Duration 09/24/21 One Impairment Pt does not have an appropriate home exercise program Short Term Goal (STG) Pt to be independent and compliant with an appropriate HEP STG Duration 07/25/21 Assessment Summary Assessment Pt required a few rest breaks, but overall tolerated treatment well. Noted she felt awful during ambulating with heads turns, but did recovery fairly quickly with rest. Physical Therapy Plan Frequency and Duration Frequency of Treatment 2x/Week Duration of Treatment Three months Plan of Care Start Date 06/26/21 Plan of Care End Date 09/25/21 Therapeutic Interventions Therapeutic Interventions Balance Training,Coordination Training,Home Exercise Program ,Manual Therapy,Neuromuscular Re-education,Patient/Caregiver Education,Self-Care/Home Management,Soft Tissue Mobilization,Therapeutic Activities,Therapeutic Exercises,Vestibular Rehabilitation Next Visit Focus/Plan Next Note Type Treatment Note Next Visit Plan Vestibular rehabilitation, convergence training, balance training
--- NOTE | 2021-09-16 11:13 | PT.OTN ---
Current Diagnoses Migraine with aura, not intractable, without status migrainosus (09/16/21) Other migraine, not intractable, without status migrainosus (09/16/21) Dizziness and giddiness (09/16/21) Physical Therapy Treatment Note PT-OP-A Visit Information Start: 06/25/21 15:46 Freq: Status: Active Protocol: Document 09/16/21 10:37 DCW (Rec: 09/16/21 11:13 DCW [id number]) Out-Patient Physical Therapy Visit Information Visit Information Visit Type Treatment Note Visit Start Time 10:37 Visit Stop Time 11:07 Total Visit Minutes 30 Visit Number 9 Number of TELECOMMUNICATIONS NETWORK PLANNER Visits 0 Evaluation Information Evaluation Date 06/25/21 PT-OP-B Current Condition Start: 06/25/21 15:46 Freq: Status: Active Protocol: Document 06/25/21 09:45 DCW (Rec: 06/25/21 17:54 DCW [id number]) Current Condition History of Current Condition Onset Date Multi-year history Current Complaints Vertiginous migraine, visual motion sensitivity History of Current Condition Pt is a 35 year old female with a long-standing history of migraine, vertigo, and visual-motion sensitivity. Pt was previously seen at this clinic for brief sessions for with the same complaints twice before, with limited benefit. Pt notes since she was last here ~2 years ago, her neurologist has tried a multitude of medications, none of which helped. Pt recently transfered care to a new PCP, who ordered an MRI and recommended return to PT. Pt notes her symptoms have been worse recently, she has migraines every day, dizziness 3x/week, and severe episodes of vertigo including vomiting and being bed-bound 1x/month. Notes mornings are worst most of the time, and she has been having some numbness and tingling in her hands and at the base of her neck. Also notes ringing inher ears constantly, as well as pressure, it feels like an air-pump going into my ears and is about to explode. Notes that she had her MRI performed last week, and then yesterday got a call from radiology stating that she needed a follow-up with her PCP to go over imaging, but she was not able to get in for another month, so she is anxiously awaiting these results. PT-OP-C Subjective Start: 06/25/21 15:46 Freq: Status: Active Protocol: Document 09/16/21 10:37 DCW (Rec: 09/16/21 11:13 DCW [id number]) OP-PT Subjective Patient Comments Patient Comments Notes she has a headache today , but no different that normal. PT-OP-D Balance Start: 06/25/21 15:46 Freq: Status: Active Protocol: Document 06/25/21 09:45 DCW (Rec: 06/25/21 15:56 DCW [id number]) Balance Tests CTSIB CTSIB Position 1 30+ CTSIB Position 2 30+ CTSIB Position 3 30+ CTSIB Position 4 30+ CTSIB Position 5 30+ CTSIB Position 6 12 PT-OP-O Vestibular Start: 06/25/21 15:46 Freq: Status: Active Protocol: Document 06/25/21 09:45 DCW (Rec: 06/25/21 15:59 DCW [id number]) Vestibular Assessment Auditory Tests Rinne Test Negative Air Conduction Results Equal Visual Testing Smooth Pursuits Horizontal WNL Smooth Pursuits Vertical WNL Saccades Horizontal WNL, c/o dizziness Heave Test c/o dizzy Thrust Head c/o dizzy Convergence Test Impaired Spontaneous Nystagmus Negative Positional Testing Aurora-Hallpike Negative Left,Negative Right Comments Vestibular Comments Subjective symptoms with saccads, R hallpike, but no nystagmus. Convergence testing shows diplopia starts at 29 cm PT-OP-Q Treatments Start: 06/25/21 15:46 Freq: Status: Active Protocol: Document 09/16/21 10:37 DCW (Rec: 09/16/21 11:13 DCW [id number]) Gym Equipment Shuttle Balance Red Comments WBOS EO/EC Staggered /c Horiz Head turns Neuro Re-Education Treatment Balance Activities Foam stance Details Foam SLS Surface Blue foam Tandem stance Details Tandem stance Comments X1 Dynamic Gait Details Length of long hallway Comments Horizontal/Vertical head turns 60 bpm Retro Walking Tandem Ambulation PT-OP-T Assessment and Plan Start: 06/25/21 15:46 Freq: Status: Active Protocol: Document 09/16/21 10:37 DCW (Rec: 09/16/21 11:13 DCW [id number]) Physical Therapy Assessment Impairments Impairments Activity Tolerance,Balance, Coordination,Functional Activities,Functional Mobility ,Pain,Vestibular,Visual Motor Goals Three Impairment Pt reports diplopia during convergence testing at 29 cm Penitentiary Goal (LTG) Pt to demonstrate ability to maintain single vision with convergence testing until target is within 10 cm in order to help reduce visual motion sensitivity. LTG Duration 09/24/21 Two Impairment Pt reports episodes of sustained dizziness 3x/week Penitentiary Goal (LTG) Pt to report reduction of symptomatic days suffering from vertiginous symptoms to 1x/week LTG Duration 09/24/21 One Impairment Pt does not have an appropriate home exercise program Short Term Goal (STG) Pt to be independent and compliant with an appropriate HEP STG Duration 07/25/21 Assessment Summary Assessment Pt tolerated treatment fairly well today, did report feeling woozy after most activity, but symptoms largely resolved after short breaks. Physical Therapy Plan Frequency and Duration Frequency of Treatment 2x/Week Duration of Treatment Three months Plan of Care Start Date 06/26/21 Plan of Care End Date 09/25/21 Therapeutic Interventions Therapeutic Interventions Balance Training,Coordination Training,Home Exercise Program ,Manual Therapy,Neuromuscular Re-education,Patient/Caregiver Education,Self-Care/Home Management,Soft Tissue Mobilization,Therapeutic Activities,Therapeutic Exercises,Vestibular Rehabilitation Next Visit Focus/Plan Next Note Type Treatment Note Next Visit Plan Vestibular rehabilitation, convergence training, balance training
--- NOTE | 2021-09-21 11:55 | PT.OTN ---
Current Diagnoses Migraine with aura, not intractable, without status migrainosus (09/21/21) Other migraine, not intractable, without status migrainosus (09/21/21) Dizziness and giddiness (09/21/21) Physical Therapy Treatment Note PT-OP-A Visit Information Start: 06/25/21 15:46 Freq: Status: Active Protocol: Document 09/21/21 11:15 DCW (Rec: 09/21/21 11:55 DCW [id number]) Out-Patient Physical Therapy Visit Information Visit Information Visit Type Treatment Note Visit Start Time 11:15 Visit Stop Time 11:47 Total Visit Minutes 32 Visit Number 10 Number of PUBLIC ADDRESS SERVICER Visits 0 Evaluation Information Evaluation Date 06/25/21 PT-OP-B Current Condition Start: 06/25/21 15:46 Freq: Status: Active Protocol: Document 06/25/21 09:45 DCW (Rec: 06/25/21 17:54 DCW [id number]) Current Condition History of Current Condition Onset Date Multi-year history Current Complaints Vertiginous migraine, visual motion sensitivity History of Current Condition Pt is a 35 year old female with a long-standing history of migraine, vertigo, and visual-motion sensitivity. Pt was previously seen at this clinic for brief sessions for with the same complaints twice before, with limited benefit. Pt notes since she was last here ~2 years ago, her neurologist has tried a multitude of medications, none of which helped. Pt recently transfered care to a new PCP, who ordered an MRI and recommended return to PT. Pt notes her symptoms have been worse recently, she has migraines every day, dizziness 3x/week, and severe episodes of vertigo including vomiting and being bed-bound 1x/month. Notes mornings are worst most of the time, and she has been having some numbness and tingling in her hands and at the base of her neck. Also notes ringing inher ears constantly, as well as pressure, it feels like an air-pump going into my ears and is about to explode. Notes that she had her MRI performed last week, and then yesterday got a call from radiology stating that she needed a follow-up with her PCP to go over imaging, but she was not able to get in for another month, so she is anxiously awaiting these results. PT-OP-C Subjective Start: 06/25/21 15:46 Freq: Status: Active Protocol: Document 09/21/21 11:15 DCW (Rec: 09/21/21 11:55 DCW [id number]) OP-PT Subjective Patient Comments Patient Comments I have a headaches today. It' s a bad one. PT-OP-D Balance Start: 06/25/21 15:46 Freq: Status: Active Protocol: Document 06/25/21 09:45 DCW (Rec: 06/25/21 15:56 DCW [id number]) Balance Tests CTSIB CTSIB Position 1 30+ CTSIB Position 2 30+ CTSIB Position 3 30+ CTSIB Position 4 30+ CTSIB Position 5 30+ CTSIB Position 6 12 PT-OP-O Vestibular Start: 06/25/21 15:46 Freq: Status: Active Protocol: Document 06/25/21 09:45 DCW (Rec: 06/25/21 15:59 DCW [id number]) Vestibular Assessment Auditory Tests Rinne Test Negative Air Conduction Results Equal Visual Testing Smooth Pursuits Horizontal WNL Smooth Pursuits Vertical WNL Saccades Horizontal WNL, c/o dizziness Heave Test c/o dizzy Thrust Head c/o dizzy Convergence Test Impaired Spontaneous Nystagmus Negative Positional Testing Magda-Hallpike Negative Left,Negative Right Comments Vestibular Comments Subjective symptoms with saccads, R hallpike, but no nystagmus. Convergence testing shows diplopia starts at 29 cm PT-OP-Q Treatments Start: 06/25/21 15:46 Freq: Status: Active Protocol: Document 09/21/21 11:15 DCW (Rec: 09/21/21 11:55 DCW [id number]) Gym Equipment Shuttle Balance Red Comments WBOS - X1 LAteral weight shift Neuro Re-Education Treatment Balance Activities Tandem stance Details Tandem stance Surface Mayer foam Comments X1 Dynamic Gait Details Length of long hallway Comments Horizontal/Vertical head turns 60 bpm Retro Walking Tandem Ambulation PT-OP-T Assessment and Plan Start: 06/25/21 15:46 Freq: Status: Active Protocol: Document 09/21/21 11:15 DCW (Rec: 09/21/21 11:55 DCW [id number]) Physical Therapy Assessment Impairments Impairments Activity Tolerance,Balance, Coordination,Functional Activities,Functional Mobility ,Pain,Vestibular,Visual Motor Goals Three Impairment Pt reports diplopia during convergence testing at 29 cm Electronic Gaming Device Supervisor Goal (LTG) Pt to demonstrate ability to maintain single vision with convergence testing until target is within 10 cm in order to help reduce visual motion sensitivity. LTG Duration 09/24/21 Two Impairment Pt reports episodes of sustained dizziness 3x/week Electronic Gaming Device Supervisor Goal (LTG) Pt to report reduction of symptomatic days suffering from vertiginous symptoms to 1x/week LTG Duration 09/24/21 One Impairment Pt does not have an appropriate home exercise program Short Term Goal (STG) Pt to be independent and compliant with an appropriate HEP STG Duration 10/22/21 - Improving Assessment Summary Assessment Pt suffering from a worse-than -usual headache today, but still performed well with her vestibular challenges. Pt worried about her upcoming appointment with her new neurologist. Physical Therapy Plan Frequency and Duration Frequency of Treatment 2x/Week Duration of Treatment Three months Plan of Care Start Date 06/26/21 Plan of Care End Date 09/25/21 Therapeutic Interventions Therapeutic Interventions Balance Training,Coordination Training,Home Exercise Program ,Manual Therapy,Neuromuscular Re-education,Patient/Caregiver Education,Self-Care/Home Management,Soft Tissue Mobilization,Therapeutic Activities,Therapeutic Exercises,Vestibular Rehabilitation Next Visit Focus/Plan Next Note Type Treatment Note Next Visit Plan Vestibular rehabilitation, convergence training, balance training
--- NOTE | 2021-10-06 14:37 | PT.OTN ---
Current Diagnoses Migraine with aura, not intractable, without status migrainosus (10/06/21) Other migraine, not intractable, without status migrainosus (10/06/21) Dizziness and giddiness (10/06/21) Physical Therapy Treatment Note PT-OP-A Visit Information Start: 06/25/21 15:46 Freq: Status: Active Protocol: Document 10/06/21 13:50 DCW (Rec: 10/06/21 14:37 DCW [id number]) Out-Patient Physical Therapy Visit Information Visit Information Visit Type Treatment Note Visit Start Time 13:50 Visit Stop Time 14:23 Total Visit Minutes 33 Visit Number 11 Number of CAKE WRAPPER Visits 0 Evaluation Information Evaluation Date 06/25/21 PT-OP-B Current Condition Start: 06/25/21 15:46 Freq: Status: Active Protocol: Document 06/25/21 09:45 DCW (Rec: 06/25/21 17:54 DCW [id number]) Current Condition History of Current Condition Onset Date Multi-year history Current Complaints Vertiginous migraine, visual motion sensitivity History of Current Condition Pt is a 35 year old female with a long-standing history of migraine, vertigo, and visual-motion sensitivity. Pt was previously seen at this clinic for brief sessions for with the same complaints twice before, with limited benefit. Pt notes since she was last here ~2 years ago, her neurologist has tried a multitude of medications, none of which helped. Pt recently transfered care to a new PCP, who ordered an MRI and recommended return to PT. Pt notes her symptoms have been worse recently, she has migraines every day, dizziness 3x/week, and severe episodes of vertigo including vomiting and being bed-bound 1x/month. Notes mornings are worst most of the time, and she has been having some numbness and tingling in her hands and at the base of her neck. Also notes ringing inher ears constantly, as well as pressure, it feels like an air-pump going into my ears and is about to explode. Notes that she had her MRI performed last week, and then yesterday got a call from radiology stating that she needed a follow-up with her PCP to go over imaging, but she was not able to get in for another month, so she is anxiously awaiting these results. PT-OP-C Subjective Start: 06/25/21 15:46 Freq: Status: Active Protocol: Document 10/06/21 13:50 DCW (Rec: 10/06/21 14:37 DCW [id number]) OP-PT Subjective Patient Comments Patient Comments Pt reports she is very frustrated with her neurology appointment, didn't feel like she got any answers. Was told that her MRI is unlikely to show signs of MS, which was a prior concern. PT-OP-D Balance Start: 06/25/21 15:46 Freq: Status: Active Protocol: Document 10/06/21 13:50 DCW (Rec: 10/06/21 14:37 DCW [id number]) Balance Tests CTSIB CTSIB Position 1 30+ CTSIB Position 2 30+ CTSIB Position 3 30+ CTSIB Position 4 30+ CTSIB Position 5 30+ CTSIB Position 6 14 PT-OP-O Vestibular Start: 06/25/21 15:46 Freq: Status: Active Protocol: Document 10/06/21 13:50 DCW (Rec: 10/06/21 14:02 DCW [id number]) Vestibular Assessment Visual Testing Smooth Pursuits Horizontal WNL Smooth Pursuits Vertical WNL Saccades Horizontal WNL, c/o dizziness Heave Test c/o dizzy Thrust Head c/o dizzy Convergence Test Impaired Spontaneous Nystagmus Negative Comments Vestibular Comments Subjective symptoms with saccads, R hallpike, but no nystagmus. Convergence testing shows diplopia starts at 40 cm, able to bring eyes together to resolve diplopia until 28 cm, then unable to resolve. PT-OP-Q Treatments Start: 06/25/21 15:46 Freq: Status: Active Protocol: Document 10/06/21 13:50 DCW (Rec: 10/06/21 14:37 DCW [id number]) Neuro Re-Education Treatment Balance Activities Dynamic Gait Details Length of long hallway Comments Horizontal/Vertical head turns 60 bpm Retro Walking Tandem Ambulation Other Activities Testing Comments Convergence testing, CTSIB PT-OP-T Assessment and Plan Start: 06/25/21 15:46 Freq: Status: Active Protocol: Document 10/06/21 13:50 DCW (Rec: 10/06/21 14:37 DCW [id number]) Physical Therapy Assessment Impairments Impairments Activity Tolerance,Balance, Coordination,Functional Activities,Functional Mobility ,Pain,Vestibular,Visual Motor Goals Three Impairment Pt reports diplopia during convergence testing at 29 cm Long-Term Goal (LTG) Pt to demonstrate ability to maintain single vision with convergence testing until target is within 10 cm in order to help reduce visual motion sensitivity. LTG Duration 11/05/21 - no improvement Two Impairment Pt reports episodes of sustained dizziness 3x/week Mercury Purifier Goal (LTG) Pt to report reduction of symptomatic days suffering from vertiginous symptoms to 1x/week LTG Duration 11/05/21 - improving, less frequent dizziness One Impairment Pt does not have an appropriate home exercise program Short Term Goal (STG) Pt to be independent and compliant with an appropriate HEP STG Duration 10/22/21 - Improving Assessment Summary Assessment Pt noting some improvement with dizziness, however near- constant headaches are still an ongoing complaint. Pt nearing end of approved visits . Pt does note that she was offered occipital nerve block by her neurologist, unsure if she would like to proceed with it at this time. Physical Therapy Plan Frequency and Duration Frequency of Treatment Every Other Week Duration of Treatment One month Plan of Care Start Date 10/06/21 Plan of Care End Date 11/06/21 Therapeutic Interventions Therapeutic Interventions Balance Training,Coordination Training,Home Exercise Program ,Manual Therapy,Neuromuscular Re-education,Patient/Caregiver Education,Self-Care/Home Management,Soft Tissue Mobilization,Therapeutic Activities,Therapeutic Exercises,Vestibular Rehabilitation Next Visit Focus/Plan Next Note Type Treatment Note Next Visit Plan Vestibular rehabilitation, convergence training, balance training
--- NOTE | 2021-10-06 14:38 | PT.OPPOC ---
Physical, Occupational & Speech Therapy At [facility] Current Diagnoses Migraine with aura, not intractable, without status migrainosus (10/06/21) Other migraine, not intractable, without status migrainosus (10/06/21) Dizziness and giddiness (10/06/21) Visit Care Team Role Provider Type Lorne Beyer MD Attending Provider Physician Family Provider Primary Care Provider Referring Provider Specialty: Family Practice Address: [address] [place] [address], [facility] Email: [email or web address] Plan Of Care PT-OP-T Assessment and Plan Start: 06/25/21 15:46 Freq: Status: Active Protocol: Document 10/06/21 13:50 DCW (Rec: 10/06/21 14:37 DCW [id number]) Physical Therapy Assessment Impairments Impairments Activity Tolerance,Balance, Coordination,Functional Activities,Functional Mobility ,Pain,Vestibular,Visual Motor Goals Three Impairment Pt reports diplopia during convergence testing at 29 cm Slot Machine Department Floorperson Goal (LTG) Pt to demonstrate ability to maintain single vision with convergence testing until target is within 10 cm in order to help reduce visual motion sensitivity. LTG Duration 11/05/21 - no improvement Two Impairment Pt reports episodes of sustained dizziness 3x/week Slot Machine Department Floorperson Goal (LTG) Pt to report reduction of symptomatic days suffering from vertiginous symptoms to 1x/week LTG Duration 11/05/21 - improving, less frequent dizziness One Impairment Pt does not have an appropriate home exercise program Short Term Goal (STG) Pt to be independent and compliant with an appropriate HEP STG Duration 10/22/21 - Improving Assessment Summary Assessment Pt noting some improvement with dizziness, however near- constant headaches are still an ongoing complaint. Pt nearing end of approved visits . Pt does note that she was offered occipital nerve block by her neurologist, unsure if she would like to proceed with it at this time. Physical Therapy Plan Frequency and Duration Frequency of Treatment Every Other Week Duration of Treatment One month Plan of Care Start Date 10/06/21 Plan of Care End Date 11/06/21 Therapeutic Interventions Therapeutic Interventions Balance Training,Coordination Training,Home Exercise Program ,Manual Therapy,Neuromuscular Re-education,Patient/Caregiver Education,Self-Care/Home Management,Soft Tissue Mobilization,Therapeutic Activities,Therapeutic Exercises,Vestibular Rehabilitation Next Visit Focus/Plan Next Note Type Treatment Note Next Visit Plan Vestibular rehabilitation, convergence training, balance training Plan of Care Dates Plan of Care Start Date 10/06/21 Plan of Care End Date 11/06/21 Electronically Signed by: Yuri Vargas, PT 10/06/21 [id number] If you are in agreement with this Plan of Care, please return a signed and dated copy. I have reviewed this Plan of Care and certify that the skilled therapy services above are required to meet the patient?s needs. Physician Signature Date Printed Name and Credentials Clinical Instructor Signature Printed Name and Credentials
--- NOTE | 2021-10-28 15:10 | PT.OTN ---
Current Diagnoses Migraine with aura, not intractable, without status migrainosus (10/28/21) Other migraine, not intractable, without status migrainosus (10/28/21) Dizziness and giddiness (10/28/21) Physical Therapy Treatment Note PT-OP-A Visit Information Start: 06/25/21 15:46 Freq: Status: Active Protocol: Document 10/28/21 14:31 DCW (Rec: 10/28/21 15:10 DCW [id number]) Out-Patient Physical Therapy Visit Information Visit Information Visit Type Treatment Note Visit Start Time 14:31 Visit Stop Time 15:05 Total Visit Minutes 34 Visit Number 12 Number of PACKAGE LIFT OPERATOR Visits 0 Evaluation Information Evaluation Date 06/25/21 PT-OP-B Current Condition Start: 06/25/21 15:46 Freq: Status: Active Protocol: Document 06/25/21 09:45 DCW (Rec: 06/25/21 17:54 DCW [id number]) Current Condition History of Current Condition Onset Date Multi-year history Current Complaints Vertiginous migraine, visual motion sensitivity History of Current Condition Pt is a 35 year old female with a long-standing history of migraine, vertigo, and visual-motion sensitivity. Pt was previously seen at this clinic for brief sessions for with the same complaints twice before, with limited benefit. Pt notes since she was last here ~2 years ago, her neurologist has tried a multitude of medications, none of which helped. Pt recently transfered care to a new PCP, who ordered an MRI and recommended return to PT. Pt notes her symptoms have been worse recently, she has migraines every day, dizziness 3x/week, and severe episodes of vertigo including vomiting and being bed-bound 1x/month. Notes mornings are worst most of the time, and she has been having some numbness and tingling in her hands and at the base of her neck. Also notes ringing inher ears constantly, as well as pressure, it feels like an air-pump going into my ears and is about to explode. Notes that she had her MRI performed last week, and then yesterday got a call from radiology stating that she needed a follow-up with her PCP to go over imaging, but she was not able to get in for another month, so she is anxiously awaiting these results. PT-OP-C Subjective Start: 06/25/21 15:46 Freq: Status: Active Protocol: Document 10/28/21 14:31 DCW (Rec: 10/28/21 15:10 DCW [id number]) OP-PT Subjective Patient Comments Patient Comments I'm just feeling defeated. I' m getting a brand new primary doctor, so I just feel like I' m starting all over again. PT-OP-D Balance Start: 06/25/21 15:46 Freq: Status: Active Protocol: Document 10/06/21 13:50 DCW (Rec: 10/06/21 14:37 DCW [id number]) Balance Tests CTSIB CTSIB Position 1 30+ CTSIB Position 2 30+ CTSIB Position 3 30+ CTSIB Position 4 30+ CTSIB Position 5 30+ CTSIB Position 6 14 PT-OP-O Vestibular Start: 06/25/21 15:46 Freq: Status: Active Protocol: Document 10/06/21 13:50 DCW (Rec: 10/06/21 14:02 DCW [id number]) Vestibular Assessment Visual Testing Smooth Pursuits Horizontal WNL Smooth Pursuits Vertical WNL Saccades Horizontal WNL, c/o dizziness Heave Test c/o dizzy Thrust Head c/o dizzy Convergence Test Impaired Spontaneous Nystagmus Negative Comments Vestibular Comments Subjective symptoms with saccads, R hallpike, but no nystagmus. Convergence testing shows diplopia starts at 40 cm, able to bring eyes together to resolve diplopia until 28 cm, then unable to resolve. PT-OP-Q Treatments Start: 06/25/21 15:46 Freq: Status: Active Protocol: Document 10/28/21 14:31 DCW (Rec: 10/28/21 15:10 DCW [id number]) Gym Equipment Shuttle Balance Red Comments WBOS - X1 LAteral weight shift Neuro Re-Education Treatment Balance Activities Balance Challenges Details FitBall pods, Dynadisc Dynamic Gait Details Length of long hallway Comments Horizontal/Vertical head turns 60 bpm Retro Walking Tandem Ambulation Self-Care/Home Management Treatment Activities Self-Care/Home Management Activities Discussed equipment (BOSU, Dynadisc, FitBall pods) with pt and that they could use at home for balance challenges, PT-OP-T Assessment and Plan Start: 06/25/21 15:46 Freq: Status: Active Protocol: Document 10/28/21 14:31 DCW (Rec: 08/24/22 15:10 [facility] [id number]) Physical Therapy Assessment Impairments Impairments Activity Tolerance,Balance, Coordination,Functional Activities,Functional Mobility ,Pain,Vestibular,Visual Motor Goals Three Impairment Pt reports diplopia during convergence testing at 29 cm Longterm Goal (LTG) Pt to demonstrate ability to maintain single vision with convergence testing until target is within 10 cm in order to help reduce visual motion sensitivity. LTG Duration 11/05/21 - no improvement Two Impairment Pt reports episodes of sustained dizziness 3x/week Molasses Feed Mixer Goal (LTG) Pt to report reduction of symptomatic days suffering from vertiginous symptoms to 1x/week LTG Duration 11/05/21 - improving, less frequent dizziness One Impairment Pt does not have an appropriate home exercise program Short Term Goal (STG) Pt to be independent and compliant with an appropriate HEP STG Duration 10/22/21 - Improving Assessment Summary Assessment Discharging following today's visit, no further insurance authorization. Despite some minor gains, pt still very limited with daily function, shows indication of severe long-term symptomatic response from vestibular loss and severe migraine activity, which may limit day-to-day ability to participate in high -level activities. May benefit from further follow-up with neurologist who specializes in migraine and potentially ENT referral for further vestibular testing and assessment. Physical Therapy Plan Frequency and Duration Frequency of Treatment Every Other Week Duration of Treatment One month Plan of Care Start Date 10/06/21 Plan of Care End Date 11/06/21 Therapeutic Interventions Therapeutic Interventions Balance Training,Coordination Training,Home Exercise Program ,Manual Therapy,Neuromuscular Re-education,Patient/Caregiver Education,Self-Care/Home Management,Soft Tissue Mobilization,Therapeutic Activities,Therapeutic Exercises,Vestibular Rehabilitation Discharge Physical Therapy Discharge Reasons No Longer Attending PT Next Visit Focus/Plan Next Note Type Discharge Summary
== END 2021-10-29 10:47 ==
LOC: PHYS 14:30
PROVIDERS: Family Provider Family Medicine; PCP Family Medicine; Referring Provider Family Medicine; Visit Provider Family Medicine
DX: G43.109 Migraine with aura, not intractable, without status migrainosus (principal); G43.809 Other migraine, not intractable, without status migrainosus; R42 Dizziness and giddiness
CPT/HCPCS: 97112; 97140; 97163

== ENCOUNTER → 2022-09-02 13:46 | Outpatient (CLI) | payer OTHER, MEDICAID, SELFPAY ==
[2022-09-02 14:57] LABS: Add Manual Diff / Slide Review NO; Basophils Absolute Auto 0 /uL (0-100); Basophils Percent Auto 0.5 % (0-2); Eosinophils Absolute Auto 0 /uL (0-450); Eosinophils Percent Auto 0.7 % (2-4); Hematocrit 41.6 % (36-46); Hemoglobin 13.6 g/dL (12.0-16.0); Lymphocytes Absolute Auto 1800 /uL (1100-4500); Lymphocytes Percent Auto 44.1 % (25-40); Mean Corpuscular HGB Conc 32.8 % (30-36); Mean Corpuscular Hemoglobin 27.3 PG (26-34); Mean Corpuscular Volume 83.3 fL (80-100); Monocytes Absolute Auto 200 /uL (0-900); Monocytes Percent Auto 5.7 % (3-14); Neutrophils Absolute Auto 2000 /uL (1500-7000); Platelet Count 196 X10^3/uL (150-400); Red Blood Cell Count 4.99 X10^6/uL (4.0-5.2); White Blood Cell Count 4.1 X10^3/uL (4.5-11.0)
[2022-09-02 15:16] LABS: Alanine Aminotransferase 26 IU/L (<35); Albumin 4.8 g/dL (3.5-5.0); Albumin Globulin Ratio 1.4 (1.0-2.8); Alkaline Phosphatase 56 U/L (38-126); Aspartate Aminotransferase 25 IU/L (14-36); BUN Creatinine Ratio 15.6 (6-22); Bilirubin Total 0.5 mg/dL (0.2-1.3); Blood Urea Nitrogen 10 mg/dL (7-17); C-Reactive Protein Quant < 0.5 mg/dL (<1.0); Calcium 9.2 mg/dL (8.4-10.2); Carbon Dioxide 26 mmol/L (22-32); Chloride 104 mmol/L (98-107); Estimated Glomerular Filt Rate > 60 mL/min (>60); Globulin 3.4 g/dL (1.7-4.1); Glucose 91 mg/dL (70-100); HEMOLYSIS < 15 (0-50); Sodium 139 mmol/L (137-145); Total Protein 8.2 g/dL (6.3-8.2)
[2022-09-02 15:33] LABS: Erythrocyte Sedimentation Rate 5 MM/HR (0-20)
[2022-09-05 18:53] LABS: ANA Screen, IFA Negative (.)
[2022-09-06 17:04] LABS: Cytoplasmic C-ANCA <1:20 titer (Neg:<1:20); Perinuclear P-ANCA <1:20 titer (Neg:<1:20)
== END ==
PROVIDERS: Family Provider Family Medicine; PCP Family Medicine; Referring Provider Family Medicine; Visit Provider Family Medicine
DX: F43.10 Post-traumatic stress disorder, unspecified (principal); G43.109 Migraine with aura, not intractable, without status migrainosus; G43.809 Other migraine, not intractable, without status migrainosus; S06.9X9A Unspecified intracranial injury with loss of consciousness of unspecified duration, initial encounter
CPT/HCPCS: 36415; 80053; 85025; 85651; 86038; 86140; 86256

== ENCOUNTER → 2022-09-17 10:53 | Outpatient (CLI) | payer OTHER, MEDICAID, SELFPAY ==
[2022-09-17 13:27] LABS: TSH w/ Reflex to FT4 1.22 uIU/mL (0.47-4.68)
[2022-09-17 13:46] LABS: Vitamin B12 459 pg/mL (239-931)
== END ==
PROVIDERS: Family Provider Family Medicine; PCP Family Medicine; Referring Provider Family Medicine; Visit Provider Family Medicine
DX: G43.809 Other migraine, not intractable, without status migrainosus (principal); G43.109 Migraine with aura, not intractable, without status migrainosus; S06.9X9A Unspecified intracranial injury with loss of consciousness of unspecified duration, initial encounter; F43.10 Post-traumatic stress disorder, unspecified; R41.3 Other amnesia
CPT/HCPCS: 36415; 82607; 84443

== ENCOUNTER → 2022-09-29 11:20 | Outpatient (CLI) | payer OTHER, MEDICAID, SELFPAY ==
--- NOTE | 2022-09-29 11:21 | DI.MRI.S_ITS ---
PROCEDURE: MR HEAD/BRAIN WO CON INDICATIONS: compare to last year. Previously given history of chronic severe headaches. Prior abnormal MRI, with white matter disease. TECHNIQUE: Noncontrast axial T1 spin echo, axial T2 fast spin echo, sagittal and axial FLAIR, coronal T2 fast spin echo, axial gradient echo, axial diffusion and ADC through the brain. COMPARISON: [facility], MR, MR HEAD/BRAIN WO CON, 06/17/2021, 11:28. FINDINGS: Image quality: Diagnostic, with note made of motion artifact. CSF Spaces: Basal cisterns are patent. No extra-axial fluid collections. Ventricles are normal in size and shape. Brain: There are a few scattered foci of T2 weighted hyperintensity seen within white matter, including peripheral lesions. No definite involvement of the corpus callosum can be seen. These white matter lesions are not significantly progressed compared to 06/17/2021 MRI examination. No intracranial masses or hemorrhage. Medrano/white matter interface is normal. Brainstem appears normal. Diffusion-weighted images demonstrate no acute ischemic insult. No chronic ischemic insults. Normal intravascular flow voids are present. Skull and face: Calvarium has normal marrow signal. Orbits appear normal. Sinuses: Sinuses and mastoids are clear. IMPRESSION: Stable T2 hyperintense white matter lesions are seen, including peripheral lesions. These are nonspecific, although differential diagnosis includes sequelae of migraine headaches and early/mild multiple sclerosis. Dictated by: Chad Villatoro M.D. on 09/29/2022 at 11:01 Approved by: Chad Villatoro M.D. on 09/29/2022 at 11:03
== END ==
PROVIDERS: Family Provider Family Medicine; PCP Family Medicine; Referring Provider Family Medicine; Visit Provider Family Medicine
DX: S06.9X0S Unspecified intracranial injury without loss of consciousness, sequela (principal); R90.82 White matter disease, unspecified; G43.109 Migraine with aura, not intractable, without status migrainosus
CPT/HCPCS: 70551

== ENCOUNTER 2022-11-22 09:53 | Outpatient (RCR) | payer OTHER, MEDICAID, SELFPAY ==
--- NOTE | 2022-11-22 14:35 | PT.OIE ---
Current Diagnoses Myalgia, other site (11/22/22) Past Medical History (Last Updated 08/13/21 @ 18:43 by Carey Bergeron) Abdominal pain Anemia Anxiety (~2018) Chronic migraine with aura History of multiple miscarriages PTSD (post-traumatic stress disorder) (~2019) TBI (traumatic brain injury) Vertigo (~2018) Vestibular migraine Past Surgical History (Last Updated 08/13/21 @ 18:43 by Carey Bergeron) Anesthesia History of hysterectomy (~12/2014) History of tubal ligation (~09/2012) Ovarian cyst (~2008) S/P LASIK surgery of both eyes Visit Care Team Role Provider Type Lorne Beyer MD Family Provider Physician Primary Care Provider Specialty: Family Practice Address: [address] [place] [address], [id number] Email: [email or web address] Liang Santana MD Attending Provider Non-Staff Referring Provider Specialty: Neurology Address: [address] [place] [address], [id number] Email: Physical Therapy Initial Evaluation PT-OP-A Visit Information Start: 11/22/22 13:58 Freq: Status: Active Protocol: Document 11/22/22 10:15 DCW (Rec: 11/22/22 14:35 [facility] [id number]) Out-Patient Physical Therapy Visit Information Visit Information Visit Type Initial Evaluation Visit Start Time 10:15 Visit Stop Time 11:55 Total Visit Minutes 40 Visit Number 1 Number of INTENSIVE CARE ANAESTHETIST Visits 0 Evaluation Information Evaluation Date 11/22/22 PT-OP-B Current Condition Start: 11/22/22 13:58 Freq: Status: Active Protocol: Document 11/22/22 10:15 DCW (Rec: 11/22/22 14:35 DC [id number]) Current Condition History of Current Condition Onset Date Multi-year history Current Complaints Headaches, left arm and leg numbness/cramping, syncope History of Current Condition Pt is a 37 year old female presenting to skilled therapy with a long-standing history of balance and dizziness of unknown, possibly central origin. Pt has been treated at this clinic multiple times over the last four years for vestibular therapy with minimal results. Multiple MRIs over the past years have been suggestive of potential MS vs migraine history. However, due to recent upper extremity symptoms, including numbness, tingling, and muscle cramping, pt's neurologist is interested in further testing to rule in/rule out cervical involvement. Additional symptoms include severe headache and dizziness, including occasional syncopal episodes due to severity of dizziness, as well as numbness and cramping in her left LE. Prior Treatments and Tests Vestibular therapy, neurologist Most recent brain MRI: IMPRESSION: Stable T2 hyperintense white matter lesions are seen, including peripheral lesions. These are nonspecific, although differential diagnosis includes sequelae of migraine headaches and early/mild multiple sclerosis. Chad Villatoro M.D. on 09/29/2022 PT-OP-C Subjective Start: 11/22/22 13:58 Freq: Status: Active Protocol: Document 11/22/22 10:15 DCW (Rec: 11/22/22 14:35 DCW [id number]) OP-PT Subjective Patient Comments Patient Comments Pt admits getting more and more frustrated that she can't get any answers, and I just feel like a guniea pig. Patient Reported Progress Worse Patient Questionnaires Neck Disability Index NDI Score 54% (notes symptoms are d/t head/dizziness, not neck) Neck Disability Index Impairment 40 to 59% Impaired (Score 20- 29) PT-OP-F Manual Assessment Start: 11/22/22 13:58 Freq: Status: Active Protocol: Document 11/22/22 10:15 DCW (Rec: 11/22/22 14:35 DCW [id number]) Manual Assessments Soft Tissue Assessment Soft Tissue Mobility Assessment Mild tone along bilateral upper trap, no complaints of tenderness with palpation PT-OP-J Posture/Palpation/Skin Start: 11/22/22 13:58 Freq: Status: Active Protocol: Document 11/22/22 10:15 DCW (Rec: 11/22/22 14:35 DCW [id number]) Posture Evaluation Position Sitting Evaluation View Lateral Head/C-Spine Posture Neutral Position T-Spine Posture Neutral Shoulder Posture Neutral Scapula Posture (L) Neutral,(R) Neutral PT-OP-K Range of Motion Start: 11/22/22 13:58 Freq: Status: Active Protocol: Document 11/22/22 10:15 DCW (Rec: 11/22/22 14:35 DCW [id number]) Cervical Spine Range of Motion Cervical Spine Active Degrees Testing Position Sitting Flexion 60 Extension 50 Rotation Left 80 Rotation Right 85 Lateral Flexion Left 50 Lateral Flexion Right 45 PT-OP-L Special Tests Start: 11/22/22 13:58 Freq: Status: Active Protocol: Document 11/22/22 10:15 DCW (Rec: 11/22/22 14:35 DCW [id number]) Special Tests Cervical Spine Special Tests Upper Limb Tension Test Test Results Negative Spurling's Test Test Results Negative Slump Test Results Negative Passive Neck Flexion Test Results Negative Foraminal Compression Test Results Negative PT-OP-T Assessment and Plan Start: 11/22/22 13:58 Freq: Status: Active Protocol: Document 11/22/22 10:15 DCW (Rec: 11/22/22 14:35 DCW [id number]) Physical Therapy Assessment Evaluation Complexity Number of Personal Factors/Comorbidities 3 or More Number of Body Systems Impaired 4 or More Clinical Presentation at Evaluation Unstable Assessment Summary Assessment Pt cervical examination negative at this time. No apparent soft tissue or Range of Motion limitations throughout cervical spine. Unable to replicate UE symptoms with any cervical testing or upper limb tension tests today. No indication that any further skilled therapy would be beneficial at this time. Pt would likely benefit from further advanced imaging, neurological testing, and/or return to PCP. Physical Therapy Plan Frequency and Duration Frequency of Treatment 1x/Week Plan of Care Start Date 11/22/22 Plan of Care End Date 11/23/22 Discharge Physical Therapy Discharge Comments No further PT indicated at this time. Next Visit Focus/Plan Next Note Type Discharge Summary
--- NOTE | 2022-11-22 14:36 | PT.OPPOC ---
Physical, Occupational & Speech Therapy At [facility] Current Diagnoses Myalgia, other site (11/22/22) Visit Care Team Role Provider Type Lorne Beyer MD Family Provider Physician Primary Care Provider Specialty: Family Practice Address: [address] [place] [address], [id number] Email: [email or web address] Liang Santana MD Attending Provider Non-Staff Referring Provider Specialty: Neurology Address: [address] [place], [address] Email: Plan Of Care PT-OP-T Assessment and Plan Start: 11/22/22 13:58 Freq: Status: Active Protocol: Document 11/22/22 10:15 DCW (Rec: 11/22/22 14:35 DCW [id number]) Physical Therapy Assessment Evaluation Complexity Number of Personal Factors/Comorbidities 3 or More Number of Body Systems Impaired 4 or More Clinical Presentation at Evaluation Unstable Assessment Summary Assessment Pt cervical examination negative at this time. No apparent soft tissue or Range of Motion limitations throughout cervical spine. Unable to replicate UE symptoms with any cervical testing or upper limb tension tests today. No indication that any further skilled therapy would be beneficial at this time. Pt would likely benefit from further advanced imaging, neurological testing, and/or return to PCP. Physical Therapy Plan Frequency and Duration Frequency of Treatment 1x/Week Plan of Care Start Date 11/22/22 Plan of Care End Date 11/23/22 Discharge Physical Therapy Discharge Comments No further PT indicated at this time. Next Visit Focus/Plan Next Note Type Discharge Summary Plan of Care Dates Plan of Care Start Date 11/22/22 Plan of Care End Date 11/23/22 Electronically Signed by: Yuri Vargas, PT 11/22/22 [id number] If you are in agreement with this Plan of Care, please return a signed and dated copy. I have reviewed this Plan of Care and certify that the skilled therapy services above are required to meet the patient?s needs. Physician Signature Date Printed Name and Credentials Clinical Instructor Signature Printed Name and Credentials
== END 2022-11-22 16:03 | disposition home or self-care (01) ==
LOC: PHYS 09:53
PROVIDERS: Family Provider Family Medicine; PCP Family Medicine; Referring Provider Psychiatry & Neurology Neurology; Visit Provider Psychiatry & Neurology Neurology
DX: M79.18 Myalgia, other site (principal)
CPT/HCPCS: 97163

== ENCOUNTER 2023-09-29 16:45 | Outpatient (RCR) | payer OTHER, MEDICAID, SELFPAY ==
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
--- NOTE | 2023-08-10 12:49 | PT.OPPOC ---
Physical, Occupational & Speech Therapy At [facility] Current Diagnoses Other complicated headache syndrome (08/10/23) Pain in left shoulder (08/10/23) Radiculopathy, cervical region (08/10/23) Dizziness and giddiness (08/10/23) Visit Care Team Role Provider Type Lorne Beyer MD Family Provider Physician Primary Care Provider Specialty: Family Practice Address: [address] [place] [address], [id number] Email: [email or web address] Henry Avila MD Attending Provider Physician Referring Provider Specialty: Anesthesiology Interventional Radiology Pain Management Address: [facility] [place], [address] Email: [email or web address] Plan Of Care PT-OP-T Assessment and Plan Start: 08/10/23 12:08 Freq: Status: Active Protocol: Document 08/10/23 09:50 DCW (Rec: 08/10/23 12:48 DCW [id number]) Physical Therapy Assessment Rehab Potential Rehabilitation Potential Fair Evaluation Complexity Number of Personal Factors/Comorbidities 3 or More Number of Body Systems Impaired 4 or More Clinical Presentation at Evaluation Unstable Goals Two Impairment Shoulder weakness (4-/5) in most tested planes Community Educator Goal (LTG) Pt to exhibit increased bilateral shoulder strength by at least a half grade to 4/5 in all tested planes in order to help improve stability of shoulders and decrease muscle spasming LTG Duration 10/10/23 One Impairment Pt does not have an appropriate home exercise program Short Term Goal (STG) Pt to be independent and compliant with an appropriate HEP STG Duration 09/09/23 Assessment Summary Assessment Pt presents to skilled therapy with a highly complex, multi- faceted history. Pt does have a severe migraine and vertigo history, cervicogenic vs migraine-variant dizziness, as well as poor balance and cervical and thoracic muscle spasm. Pt is demonstrating shoulder ROM WNL, however does show decreased overall strength, which may be leading to protective spasming of her shoulder musculature in order to help stabilize her joints. There is, however the underlying concern of her headache, migraine, and dizziness history may be causing additional ongoing symptoms, and without an accurate diagnosis, difficult to determine overall cause of pt's current symptoms. Do continue to worry about potential central causes of symptoms, due to lesions found with MRI and ongoing neuro symptoms of tingling and numbness in all limbs. Pt may benefit from skilled therapeutic intervention focusing on improving shoulder strength to help decrease tone. May consider trial of STM, however pt has responded very poorly to cervical STM in the past. Physical Therapy Plan Frequency and Duration Frequency of Treatment 2x/Week Plan of Care Start Date 08/10/23 Plan of Care End Date 10/10/23 Therapeutic Interventions Therapeutic Interventions Home Exercise Program,Manual Therapy,Neuromuscular Re- education,Patient/Caregiver Education,Self-Care/Home Management,Soft Tissue Mobilization,Therapeutic Activities,Therapeutic Exercises Modalities Cold Pack/Ice Massage,Electric Stimulation,Hot Packs, Ultrasound Next Visit Focus/Plan Next Note Type Treatment Note Next Visit Plan Shoulder strengthening, trial of pain-control modalities if tolerated, stabilization of shoulder girdle Plan of Care Dates Plan of Care Start Date 08/10/23 Plan of Care End Date 10/10/23 Electronically Signed by: Yuri Vargas, PT 08/10/23 0143 If you are in agreement with this Plan of Care, please return a signed and dated copy. I have reviewed this Plan of Care and certify that the skilled therapy services above are required to meet the patient?s needs. Physician Signature Date Printed Name and Credentials Clinical Instructor Signature Printed Name and Credentials
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
== END 2023-09-30 08:54 | disposition home or self-care (01) ==
LOC: PHYS 16:45
PROVIDERS: Family Provider Family Medicine; PCP Family Medicine; Referring Provider Anesthesiology; Visit Provider Anesthesiology
DX: M54.12 Radiculopathy, cervical region (principal); M25.512 Pain in left shoulder; R42 Dizziness and giddiness; G44.59 Other complicated headache syndrome
CPT/HCPCS: 97110; 97140; 97163

== ENCOUNTER → 2023-10-04 09:24 | Outpatient (CLI) | payer OTHER, MEDICAID, SELFPAY ==
[2023-10-05 12:41] LABS: Candida species Positive (Negative); Gardnerella vaginalis Negative (Negative); Trichomoas vaginalis Negative (Negative)
== END ==
PROVIDERS: Family Provider Family Medicine; PCP Family Medicine; Visit Provider Student in an Organized Health Care Education/Training Program
DX: N89.8 Other specified noninflammatory disorders of vagina (principal); R82.998 Other abnormal findings in urine
CPT/HCPCS: 87086; 87480; 87510; 87660

== ENCOUNTER → 2023-10-10 14:28 | Outpatient (CLI) | payer OTHER, MEDICAID, SELFPAY ==
--- NOTE | 2023-10-10 14:29 | DI.US.S_ITS ---
PROCEDURE: US PELVIC COMPLETE INDICATIONS: evaluate one remaining ovary for pathology TECHNIQUE: Real-time scanning was performed of the pelvic organs, with image documentation. Additional endovaginal scanning was necessary due to incomplete visualization of the adnexal and endometrial structures by transabdominal scanning. COMPARISON: None. FINDINGS: Uterus: Status post hysterectomy. Ovaries: The right ovary measures 2.0 by 1.6 x 1.4 cm, with a calculated ovarian volume of 2.3 cc. The left ovary is surgically absent. The right ovary has a normal sonographic appearance. Less than 12 follicles can be seen in the right ovary. No adnexal masses are seen. Other: No pathologic free abdominal or pelvic fluid. IMPRESSION: Unremarkable right ovary. The uterus and the left ovary are surgically absent. We strive to produce accurate, complete, and clear reports of imaging services. To assist us in improving patient care, this report was composed using standard report templates and voice recognition software. Therefore, it may contain abnormal punctuation, insertions and/or omissions. Occasional wrong-word or sound-alike substitutions may occur. Though we review the report and make efforts to correct it, we do recommend that the report be read carefully in proper context to recognize any text inaccuracies. Dictated by: Paola Vernon M.D. on 10/11/2023 at 12:45 Approved by: Paola Vernon M.D. on 10/11/2023 at 12:47
== END ==
PROVIDERS: Family Provider Family Medicine; PCP Family Medicine; Referring Provider Student in an Organized Health Care Education/Training Program; Visit Provider Student in an Organized Health Care Education/Training Program
DX: R10.2 Pelvic and perineal pain (principal); Z90.710 Acquired absence of both cervix and uterus; Z90.721 Acquired absence of ovaries, unilateral
CPT/HCPCS: 76856

== ENCOUNTER → 2023-11-28 15:27 | Outpatient (CLI) | payer OTHER, MEDICAID, SELFPAY ==
[2023-11-28 16:27] LABS: Add Manual Diff / Slide Review NO; Basophils Absolute Auto 100 /uL (0-100); Basophils Percent Auto 0.9 % (0-2); Eosinophils Absolute Auto 100 /uL (0-450); Eosinophils Percent Auto 0.9 % (2-4); Hematocrit 39.3 % (36-46); Hemoglobin 13.1 g/dL (12.0-16.0); Lymphocytes Absolute Auto 2300 /uL (1100-4500); Mean Corpuscular HGB Conc 33.3 % (30-36); Mean Corpuscular Hemoglobin 27.8 PG (26-34); Mean Corpuscular Volume 83.5 fL (80-100); Monocytes Absolute Auto 500 /uL (0-900); Monocytes Percent Auto 7.8 % (3-14); Neutrophils Absolute Auto 3300 /uL (1500-7000); Neutrophils Percent Auto 53.4 % (50-75); Platelet Count 241 X10^3/uL (150-400); Red Cell Distribution Width 13.4 % (11.6-14.8); White Blood Cell Count 6.2 X10^3/uL (4.5-11.0)
[2023-11-28 16:46] LABS: Alanine Aminotransferase 22 IU/L (<35); Albumin 4.7 g/dL (3.5-5.0); Albumin Globulin Ratio 1.3 (1.0-2.8); Alkaline Phosphatase 65 U/L (38-126); Aspartate Aminotransferase 22 IU/L (14-36); BUN Creatinine Ratio 18.9 (6-22); Bilirubin Total 0.4 mg/dL (0.2-1.3); Blood Urea Nitrogen 14 mg/dL (7-17); Calcium 10.2 mg/dL (8.4-10.2); Carbon Dioxide 22 mmol/L (22-32); Chloride 105 mmol/L (98-107); Cholesterol 189 mg/dL (140-199); Estimated Glomerular Filt Rate > 60 mL/min (>60); Globulin 3.5 g/dL (1.7-4.1); Glucose 98 mg/dL (70-100); HDL Cholesterol 69 mg/dL (40-60); HEMOLYSIS < 15 (0-50); LDL Cholesterol Calculated 104 mg/dL (<100); Potassium 3.6 mmol/L (3.4-5.1); Sodium 137 mmol/L (137-145); Total Protein 8.2 g/dL (6.3-8.2); Triglycerides 78 mg/dL (35-150)
[2023-11-28 17:29] LABS: TSH w/ Reflex to FT4 1.75 uIU/mL (0.47-4.68)
== END ==
PROVIDERS: Family Provider Family Medicine; PCP Family Medicine; Referring Provider Family Medicine; Visit Provider Family Medicine
DX: S06.9X9A Unspecified intracranial injury with loss of consciousness of unspecified duration, initial encounter (principal); G43.809 Other migraine, not intractable, without status migrainosus; R42 Dizziness and giddiness; G43.109 Migraine with aura, not intractable, without status migrainosus; M54.12 Radiculopathy, cervical region
CPT/HCPCS: 36415; 80053; 80061; 84443; 85025

== ENCOUNTER → 2023-11-30 11:16 | Outpatient (CLI) | payer OTHER, MEDICAID, SELFPAY ==
--- NOTE | 2023-11-30 11:17 | DI.CT.S_ITS ---
PROCEDURE: CT MASTOID TEMPORAL INDICATIONS: chronic vertigo COMPARISON: Brain MRI, 09/29/2022, head CT, 11/29/2018. TECHNIQUE: Noncontrast 0.6 mm thick axial sections acquired through each temporal bone separately. Coronal images are reformatted. FINDINGS: Image quality: Excellent. RIGHT: External auditory canal: Canal has a normal appearance. Middle ear: The middle ear structures, including the ossicles and tympanic membrane, appear normal. No abnormal fluid or soft tissue density. Inner ear: Inner ear is normally formed and appears unremarkable. Facial nerve appears normal throughout is course. Mastoids: Mastoid air cells are clear. LEFT: External auditory canal: Canal has a normal appearance. Middle ear: The middle ear structures, including the ossicles appear normal. No abnormal fluid or soft tissue density. There is thickening of the left tympanic membrane, as seen on series 7, image 74. Inner ear: Inner ear is normally formed and appears unremarkable. Facial nerve appears normal throughout its course. Mastoids: Mastoid air cells are clear. MISCELLANEOUS: Visualized surrounding bones appear unremarkable. Visualized intracranial structures, including the cerebellopontine angle cisterns, appear normal. IMPRESSION: No imaging explanation is found for this patient's presenting symptoms. Is note is made of thickening of the left tympanic membrane. Dictated by: Chad Villatoro M.D. on 12/01/2023 at 10:35 Approved by: Chad Villatoro M.D. on 12/01/2023 at 10:37
== END ==
PROVIDERS: Family Provider Family Medicine; PCP Family Medicine; Referring Provider Family Medicine; Visit Provider Family Medicine
DX: R42 Dizziness and giddiness (principal); S06.9X0S Unspecified intracranial injury without loss of consciousness, sequela; G43.809 Other migraine, not intractable, without status migrainosus; G43.E09 Chronic migraine with aura, not intractable, without status migrainosus; M54.12 Radiculopathy, cervical region
CPT/HCPCS: 70480

== ENCOUNTER → 2024-05-08 09:01 | Outpatient (CLI) | payer OTHER, SELFPAY ==
[2024-05-08 11:58] LABS: COVID-19 CEPHEID 4-PLEX PCR Negative (Negative); Influenza A - CEPHEID Flu A NEGATIVE (NEGATIVE); Influenza B - CEPHEID Flu B NEGATIVE (NEGATIVE); Respiratory Syncytial Virus Negative (Negative)
== END ==
PROVIDERS: Family Provider Family Medicine; PCP Family Medicine; Visit Provider Nurse Practitioner Family
DX: J02.9 Acute pharyngitis, unspecified (principal); R05.1 Acute cough
CPT/HCPCS: 87635; 87400 ×2; 87420; 0241U; 87070

== ENCOUNTER → 2024-05-14 10:51 | Outpatient (CLI) | payer OTHER, SELFPAY ==
--- NOTE | 2024-05-14 10:53 | DI.RAD.S_ITS ---
PROCEDURE: XR CHEST 2V INDICATIONS: acute cough TECHNIQUE: 2 views of the chest were acquired. COMPARISON: [facility], CR, XR CHEST 2V, 08/31/2020, 10:46. FINDINGS: Surgical changes and devices: None. Lungs and pleura: Lungs are clear. No pleural effusions or pneumothorax. Mediastinum: Mediastinal contours are normal. Heart size is normal. Bones and chest wall: No suspicious bony abnormalities. Soft tissues appear unremarkable. IMPRESSION: No acute cardiopulmonary abnormality is seen. Dictated by: Valentino Ahmadi M.D. on 05/15/2024 at 2:55 Approved by: Valentino Ahmadi M.D. on 05/15/2024 at 2:55
== END ==
PROVIDERS: Family Provider Family Medicine; PCP Family Medicine; Referring Provider Physician Assistant; Visit Provider Physician Assistant
DX: R05.1 Acute cough (principal)
CPT/HCPCS: 71046

== ENCOUNTER → 2024-07-24 16:18 | Outpatient (CLI) | payer OTHER, SELFPAY ==
--- NOTE | 2024-07-24 16:20 | DI.MG.S_ITS ---
MM screening mammo BI: 07/24/2024. BI-RADS: 0 CLINICAL: 38-year old female for bilateral screening mammogram. Tyrer-Cuzick lifetime risk of 5.0%. No personal or first-degree family history of breast cancer. PRIOR EXAMS: None. This is a baseline mammogram. MAMMOGRAPHY TECHNIQUE: 2D and 3D (tomosynthesis) digital mammographic views obtained, with additional images as needed for full coverage. Current study was also evaluated with a Computer Aided Detection (CAD) system. DENSITY C. The breasts are heterogeneously dense, which may obscure small masses. MAMMOGRAPHY FINDINGS Right: No suspicious mass, asymmetry, microcalcification, or other abnormality seen. Left: Lower Inner Quadrant, Middle depth: Focal asymmetry needing additional imaging evaluation. IMPRESSION: Right * No evidence of malignancy. Left (Asymmetry): Lower Inner Quadrant, Middle depth * Incomplete - focal asymmetry needing additional imaging evaluation. RECOMMENDATIONS Left: Lower Inner Quadrant, Middle depth * Further evaluation with diagnostic mammography and diagnostic ultrasound. Ultrasound to be performed only if needed. OVERALL ASSESSMENT CATEGORY BI-RADS-0: Incomplete - Need Additional Imaging Evaluation. ELECTRONICALLY SIGNED: Nita Brennan M.D. on 07/25/2024 at 07:06:06 AM PT Interpreting Station ID: [id number]
== END ==
PROVIDERS: Family Provider Family Medicine; PCP Family Medicine; Referring Provider Family Medicine; Visit Provider Family Medicine
DX: Z12.31 Encounter for screening mammogram for malignant neoplasm of breast (principal); N64.89 Other specified disorders of breast
CPT/HCPCS: 77063; 77067

== ENCOUNTER → 2024-08-28 09:25 | Outpatient (CLI) | payer OTHER, SELFPAY ==
--- NOTE | 2024-08-28 09:27 | DI.US.S_ITS ---
US breast LT limited, MM diagnostic mammo unilat LT: 08/28/2024 BI-RADS: 1 CLINICAL: 38-year old female for left diagnostic mammogram and left diagnostic breast ultrasound that is a recall from screening on 07/24/2024. Tyrer-Cuzick lifetime risk of 5.0%. No personal or first-degree family history of breast cancer. PRIOR EXAMS Mammogram(s): 07/24/2024. MAMMOGRAPHY TECHNIQUE: 2D and 3D (tomosynthesis) digital mammographic views obtained, with additional images as needed for full coverage. Current study was also evaluated with a Computer Aided Detection (CAD) system. ULTRASOUND TECHNIQUE Real-time mcrae scale imaging of the area of clinical interest was performed with image documentation. TARGETED Left Breast Ultrasound: Real-time ultrasound exam was performed focused to area of clinical and/or imaging concern. DENSITY Left: C. The breasts are heterogeneously dense, which may obscure small masses. MAMMOGRAPHY FINDINGS Left (finding-1): Lower Inner Quadrant, Middle depth: The finding seen on recent screening mammogram partially disperses with spot views. ULTRASOUND FINDINGS Left (finding-1): Lower Inner at 7:00: There is no sonographic correlate for the mammographic finding. No suspicious sonographic finding present. IMPRESSION: Left * No evidence of malignancy. RECOMMENDATIONS Bilateral * Annual screening mammography. OVERALL ASSESSMENT CATEGORY BI-RADS-1: Negative. The [employer] recommends annual screening mammography beginning at age 40 for women with average risk of breast cancer. ELECTRONICALLY SIGNED: Tim Mota M.D. on 08/28/2024 at 10:57:08 AM PT Interpreting Station ID: [id number]
== END ==
LOC: MAMMO 09:26
PROVIDERS: Family Provider Family Medicine; PCP Family Medicine; Referring Provider Family Medicine; Visit Provider Family Medicine
DX: N64.89 Other specified disorders of breast (principal); R92.332 Mammographic heterogeneous density, left breast
CPT/HCPCS: 76642; 77065; G0279

== ENCOUNTER → 2024-09-28 10:00 | Outpatient (CLI) | payer OTHER, SELFPAY ==
[2024-09-28 11:15] LABS: Add Manual Diff / Slide Review NO; Hematocrit 37.9 % (36-46); Hemoglobin 12.6 g/dL (12.0-16.0); Lymphocytes Absolute Auto 1800 /uL (1100-4500); Mean Corpuscular HGB Conc 33.3 % (30-36); Mean Corpuscular Hemoglobin 27.6 PG (26-34); Mean Corpuscular Volume 82.7 fL (80-100); Platelet Count 199 X10^3/uL (150-400)
[2024-09-28 11:33] LABS: Alanine Aminotransferase 18 IU/L (<35); Albumin 4.5 g/dL (3.5-5.0); Albumin Globulin Ratio 1.6 (1.0-2.8); Alkaline Phosphatase 70 U/L (38-126); Blood Urea Nitrogen 18 mg/dL (7-17); Calcium 9.1 mg/dL (8.4-10.2); Carbon Dioxide 22 mmol/L (22-32); Chloride 108 mmol/L (98-107); Cholesterol 171 mg/dL (140-199); Estimated Glomerular Filt Rate > 60 mL/min (>60); Globulin 2.9 g/dL (1.7-4.1); Glucose 88 mg/dL (70-99); HDL Cholesterol 52 mg/dL (40-60); HEMOLYSIS < 15 (0-50); Potassium 4.4 mmol/L (3.4-5.1); Sodium 139 mmol/L (137-145); Total Protein 7.4 g/dL (6.3-8.2); Triglycerides 52 mg/dL (35-150)
== END ==
PROVIDERS: Family Provider Family Medicine; PCP Family Medicine; Referring Provider Family Medicine; Visit Provider Family Medicine
DX: F41.9 Anxiety disorder, unspecified (principal); D64.9 Anemia, unspecified; R51.9 Headache, unspecified; G89.29 Other chronic pain; E78.5 Hyperlipidemia, unspecified
CPT/HCPCS: 36415; 80053; 80061; 85025